=== PATIENT | male | born 1980 | race Hispanic/Latino ===

== ENCOUNTER 2022-06-01 05:16 | Inpatient (IN) | payer OTHER, SELFPAY ==
[2022-06-01] MEDS ORDERED: Boostrix 0.5 ML (Tdap) VIAL (>/=7 yrs of age) ONE (05:21)
[2022-06-01] MEDS ORDERED: CEFAZOLIN 2 GM VIAL ONE ×3 (05:21→18:07)
[2022-06-01] MEDS ORDERED: Tranexamic Acid 1,000 MG/10 ML VIAL ONE ×2 (05:31→05:51)
[2022-06-01] MEDS ORDERED: Calcium Chloride 1 GM/10 ML Abboject SYRINGE ONE (05:43)
[2022-06-01] MEDS ORDERED: FENTANYL 50 MCG/ML 1 ML VIAL ONE ×5 (05:50→14:59)
[2022-06-01 05:55] LABS: Hemoglobin 12.8 g/dL (14.0-18.0); Mean Corpuscular HGB CONC 33.6 g/dL (32.0-36.0); Mean Corpuscular Hemoglobin 30.7 pg (27.0-31.0); Mean Corpuscular Volume 91.5 fl (78.0-98.0); Mean Platelet Volume 8.1 fL (7.4-10.4); Platelet Count 284 10x3/uL (130-400); RBC Distribution Width 11.6 % (11.5-14.5); Red Blood Cell (RBC) Count 4.16 mill/uL (4.70-6.10); White Blood Cell (WBC) Count 39.5 10x3/uL (4.8-10.8)
[2022-06-01] MEDS ORDERED: hydrALAZINE 20 MG/ML VIAL SLOW IVP PRN (05:58)
[2022-06-01] MEDS ORDERED: Morphine 4 MG/ML VIAL SLOW IVP PRN (05:58)
[2022-06-01] MEDS ORDERED: Ipratropium/Albuterol 3 ML NEB NEB PRN (05:58)
[2022-06-01] MEDS ORDERED: TETANUS, DIPHTHERIA TOX,ADULT (TDVAX) 0.5 ML VIAL IM ONE (05:58)
[2022-06-01] MEDS ORDERED: Ondansetron PF 4 MG/2 ML Vial IVP PRN (05:58)
[2022-06-01] MEDS ORDERED: Sodium Chloride 0.9% 1,000 ML IV SCH (06:00)
[2022-06-01] MEDS ORDERED: traMADol HCl 50 MG TAB PO PRN (06:02)
[2022-06-01 06:05] LABS: Acetaminophen Less than 10.0 mcg/mL (10.0-30.0); Alcohol Less than 10 mg/dL (Less than 10); CK (CPK) 1173 U/L (30-200); Salicylate Less than 8.0 mg/dL (15.0-30.0)
[2022-06-01 06:07] LABS: ALT (SGPT) 35 U/L (8-55); AST (SGOT) 45 U/L (5-34); Albumin 3.6 g/dL (3.5-5.0); Alkaline Phosphatase 80 U/L (40-110); Anion Gap 17 mmol/L (10-20); BUN (Urea Nitrogen) 22 mg/dL (8.9-20.6); Bilirubin, Total 0.7 mg/dL (0.2-1.2); Calc. Creatinine Clearance 0 mL/min (70-130); Calcium 8.6 mg/dL (7.8-10.44); Carbon Dioxide 17 mmol/L (22-29); Chloride 108 mmol/L (98-107); Estimated GFR 82; Globulin 2.5 g/dL (2.4-3.5); Glucose 195 mg/dL (70-105); Lipase 16 U/L (8-78); Potassium 3.5 mmol/L (3.5-5.1); Protein, Total 6.1 g/dL (6.0-8.3); Sodium 138 mmol/L (136-145)
[2022-06-01 06:13] LABS: INR-International Normal Ratio 1.4; PTT 29.9 sec (22.9-36.1); Prothrombin Time 17.8 sec (12.0-14.7)
[2022-06-01 06:14] LABS: Band 24 % (5-11); Lymphocytes 6 % (21-51); MDiff Complete? YES; Monocytes 8 % (0-10); Neutrophil 62 % (42-75); Platelet Morphology Comment Appears Adequate; RBC Morphology Normal
[2022-06-01] MEDS ORDERED: Ondansetron PF 4 MG/2 ML Vial ONE ×2 (06:32→18:10)
[2022-06-01] MEDS ORDERED: Lidocaine 1% MPF 2 ML VIAL ONE (07:43)
[2022-06-01] MEDS ORDERED: Lidocaine 1% w/Epinephrine 1:200K 30 ML VIAL FS SCH (08:00)
[2022-06-01 08:20] LABS: Bacteria/HPF None Seen HPF (None Seen); Bilirubin Negative (Negative); Blood, Urine 1+ (Negative); Clarity Clear (Clear); Glucose, Urine (Dipstick) Normal (Negative); Ketone, Urine Negative (Negative); Leukocyte Negative Leu/uL (Negative); Nitrite Negative (Negative); Protein, Urine (Dipstick) Negative (Neg-Trace); RBC/HPF 0-3 HPF (0-3); Specific Gravity, Urine 1.038 (1.002-1.036); Squamous Epithelial None Seen HPF (0-3); Urobilinogen Normal mg/dL (Less than 2); WBC/HPF 0-3 HPF (0-3)
[2022-06-01 08:28] LABS: Amphetamine Not Detected (NotDetected); Barbiturates Screen Not Detected (NotDetected); Benzodiazepine Screen Not Detected (NotDetected); Cocaine Metabolite Screen Not Detected (NotDetected); Methadone Not Detected (NotDetected); Methamphetamine Not Detected (NotDetected); Opiate Screen Not Detected (NotDetected); Oxycodone Screen Not Detected (NotDetected); Phencyclidine (PCP) Not Detected (NotDetected); THC/Cannabinoid Screen Not Detected (NotDetected); Tricyclic Screen Not Detected (NotDetected)
[2022-06-01] MEDS ORDERED: CEFAZOLIN 2 GM in Sodium Chloride 0.9% 100 ML IVPB SCH (08:30)
[2022-06-01] MEDS ORDERED: Gabapentin 100 MG CAP PO SCH (09:00)
[2022-06-01] MEDS: Sodium Chloride 0.9% 1,000 ML IV SCH ×3 (09:08→23:45)
[2022-06-01] MEDS ORDERED: Ketorolac Tromethamine 30 MG/ML VIAL IVP SCH (09:15)
[2022-06-01] MEDS: Acetaminophen 500 MG TAB PO SCH ×3 (09:25→23:30)
[2022-06-01] MEDS: Polyethylene Glycol 3350 17 GM Packet PO SCH (09:27)
[2022-06-01] MEDS: Gabapentin 300 MG CAP PO SCH ×3 (09:27→23:30)
[2022-06-01] MEDS: Senokot S 8.6-50 MG TAB PO SCH ×2 (09:27→23:30)
[2022-06-01] MEDS: Famotidine/PF 20 mg/2ml Vial SLOW IVP SCH ×2 (09:31→23:30)
[2022-06-01 09:33] LABS: Lactic Acid 5.9 mmol/L (0.5-2.2)
[2022-06-01] MEDS ORDERED: Iopamidol-370 76% 500 ML 1 ML ONE (11:04)
[2022-06-01] MEDS: Morphine 4 MG/ML VIAL SLOW IVP PRN (11:35)
[2022-06-01] MEDS: traMADol HCl 50 MG TAB PO SCH ×3 (11:41→23:59)
[2022-06-01] MEDS ORDERED: cefTRIAXone\\ROCEPHIN 2 GM in Sodium Chloride 0.9% 100 ML IVPB SCH (12:00)
[2022-06-01] MEDS ORDERED: traMADol HCl 50 MG TAB PO SCH (12:00)
[2022-06-01 14:03] LABS: SARS-CoV-2 NAA Rapid Test Not Detected (NotDetected)
[2022-06-01] MEDS ORDERED: fentaNYL PF 100 MCG/2 ML SYRINGE ONE ×2 (14:59→17:57)
[2022-06-01] MEDS ORDERED: HYDROmorphone 0.5 MG/0.5 ML SYRINGE ONE (14:59)
[2022-06-01] MEDS ORDERED: MINERAL OIL/WHITE PETROLATUM 3.5 GM TUBE ONE (15:00)
[2022-06-01] MEDS ORDERED: Sodium Chloride 0.9% 0 ML ONE (15:15)
[2022-06-01] MEDS ORDERED: Fluorescein Opthalmic Strip ONE (15:16)
[2022-06-01] MEDS ORDERED: Proparacaine 0.5% Opth 15 ML BOT ONE (15:24)
[2022-06-01] MEDS ORDERED: Midazolam HCl 2 mg/2 ml Vial ONE (17:57)
[2022-06-01] MEDS ORDERED: Sodium Chloride 0.9% 100 ML ONE (18:07)
[2022-06-01] MEDS ORDERED: Succinylcholine 200 MG/10 ml SYRINGE FS ONE ×2 (18:10→22:06)
[2022-06-01] MEDS ORDERED: Ketorolac Tromethamine 30 MG/ML VIAL ONE (18:10)
[2022-06-01] MEDS ORDERED: PROPOFOL 200 MG/20 ML VIAL ONE (18:10)
[2022-06-01] MEDS ORDERED: Rocuronium Bromide 10 MG/ML (10ML VIAL) ONE (18:10)
[2022-06-01] MEDS ORDERED: Dexamethasone 20 MG/5 ML VIAL ONE (18:10)
[2022-06-01] MEDS ORDERED: NEOSTIGMINE 3 MG/3 ML SYR 3 MG/3 ML SYRINGE ONE (18:10)
[2022-06-01] MEDS ORDERED: HYDROmorphone 2 MG/ML VIAL ONE (19:02)
[2022-06-01] MEDS ORDERED: SUGAMMADEX SODIUM 200 MG/2 ML VIAL ONE (19:59)
[2022-06-01] MEDS ORDERED: Naloxone HCl 0.4 mg/ml Vial ONE (22:02)
[2022-06-01] MEDS ORDERED: PROPOFOL 20 ML ONE ×2 (22:06→22:44)
[2022-06-01] MEDS ORDERED: FENTANYL 500 MCG/10 ML VIAL 2,000 MCG in Sodium Chloride 0.9% 60 ML IV PRN (22:17)
[2022-06-01] MEDS ORDERED: Fentanyl CADD 100 ML IV SCH (22:30)
[2022-06-01] MEDS ORDERED: Dexmedetomidine In 0.9 % NaCl 100 ML IVPB SCH (22:30)
[2022-06-01 23:03] LABS: Actual Bicarbonate (HCO3a) 18.2 mEq/L (22-28); Base Excess (BEa) -7.5 mEq/L (-2.0 to +3.0); CO2 Tension 37.9 mmHg (35.0-45.0); Calcium, Ionized (arterial) 1.07 mmol/L (1.12-1.30); Carboxyhemoglobin (COHb) 0.4 gm% (0.0-3.0); Hemoglobin (Hb) 11.7 g/dL (14.0-18.0); O2 Tension (PaO2), arterial 107.4 mmHg (80.0-100.0); Potassium - ABG Lab 5.41 mmol/L (3.70-5.30)
[2022-06-01 23:06] LABS: ALV-art Gradient 201.725 mmHg (0-20); Puncture Site RRA
[2022-06-02] MEDS: Morphine 4 MG/ML VIAL SLOW IVP PRN (00:40)
[2022-06-02] MEDS: Acetaminophen 500 MG TAB PO SCH ×4 (02:09→20:59)
[2022-06-02] MEDS: Ipratropium/Albuterol 3 ML NEB NEB SCH ×5 (03:04→18:28)
[2022-06-02 04:15] LABS: Anion Gap 14 mmol/L (10-20); BUN (Urea Nitrogen) 19 mg/dL (8.9-20.6); Calc. Creatinine Clearance 175 mL/min (70-130); Calcium 7.8 mg/dL (7.8-10.44); Carbon Dioxide 20 mmol/L (22-29); Chloride 109 mmol/L (98-107); Estimated GFR 104; Glucose 155 mg/dL (70-105); Magnesium 1.4 mg/dL (1.6-2.6); Potassium 4.6 mmol/L (3.5-5.1); Sodium 138 mmol/L (136-145)
[2022-06-02 04:42] LABS: Band 29 % (5-11); Hemoglobin 10.4 g/dL (14.0-18.0); Lymphocytes 3 % (21-51); MDiff Complete? YES; Mean Corpuscular HGB CONC 35.7 g/dL (32.0-36.0); Mean Corpuscular Hemoglobin 32.1 pg (27.0-31.0); Mean Corpuscular Volume 90.1 fl (78.0-98.0); Mean Platelet Volume 8.2 fL (7.4-10.4); Monocytes 5 % (0-10); Neutrophil 63 % (42-75); Platelet Count 120 10x3/uL (130-400); RBC Distribution Width 12.5 % (11.5-14.5); Red Blood Cell (RBC) Count 3.23 mill/uL (4.70-6.10); White Blood Cell (WBC) Count 14.6 10x3/uL (4.8-10.8)
[2022-06-02] MEDS: traMADol HCl 50 MG TAB PO SCH ×3 (05:48→17:31)
[2022-06-02] MEDS ORDERED: Magnesium Sulfate In Water 4 GM in Premix Bag 1 BAG IVPB SCH ×2 (06:30→07:00)
[2022-06-02] MEDS ORDERED: Sodium Phosphate 30 MMOL in Sodium Chloride 0.9% 250 ML 250 ML IVPB SCH ×2 (06:45→20:30)
[2022-06-02] MEDS ORDERED: Calcium Chloride 13.6 MEQ in Sodium Chloride 0.9% 100 ML IVPB SCH (07:00)
[2022-06-02] MEDS ORDERED: Sodium Chloride 0.9% 1,000 ML IV SCH (07:00)
[2022-06-02] MEDS ORDERED: Calcium Chloride 1 GM/10 ML Abboject SYRINGE IVP SCH (07:00)
[2022-06-02] MEDS: Sodium Chloride 0.9% 1,000 ML IV SCH ×3 (07:00→18:40)
[2022-06-02 07:25] LABS: Actual Bicarbonate (HCO3a) 19.2 mEq/L (22-28); Base Excess (BEa) -4.1 mEq/L (-2.0 to +3.0); CO2 Tension 28.9 mmHg (35.0-45.0); Calcium, Ionized (arterial) 1.03 mmol/L (1.12-1.30); Carboxyhemoglobin (COHb) 0.4 gm% (0.0-3.0); Hemoglobin (Hb) 9.6 g/dL (14.0-18.0); O2 Tension (PaO2), arterial 88.1 mmHg (80.0-100.0); pH, Arterial 7.44 (7.35-7.45)
[2022-06-02 07:30] LABS: ALV-art Gradient 89.675 mmHg (0-20); Puncture Site RRA
[2022-06-02 08:48] LABS: Lactic Acid 3.7 mmol/L (0.5-2.2)
[2022-06-02] MEDS: Gabapentin 300 MG CAP PO SCH ×3 (09:27→21:20)
[2022-06-02] MEDS: Senokot S 8.6-50 MG TAB PO SCH ×2 (09:28→21:21)
[2022-06-02] MEDS: Polyethylene Glycol 3350 17 GM Packet PO SCH (09:28)
[2022-06-02] MEDS: Famotidine/PF 20 mg/2ml Vial SLOW IVP SCH ×2 (10:13→21:20)
[2022-06-02 11:26] VITALS: BMI 43.0
[2022-06-02] MEDS ORDERED: Hydrocortisone Sod Succ/PF 100 mg/2 ml Vial IVP SCH (12:00)
[2022-06-02] MEDS: cefTRIAXone\\ROCEPHIN 2 GM in Sodium Chloride 0.9% 100 ML IVPB SCH (12:02)
[2022-06-02] MEDS: Hydrocortisone Sod Succ/PF 100 mg/2 ml Vial IVP SCH ×2 (13:53→21:00)
[2022-06-02] MEDS ORDERED: Bacitracin 1 PK TOP SCH ×2 (17:15→21:00)
[2022-06-02 20:01] LABS: #Lymphocytes 1.1 thou/uL (1.20-3.40); #Monocytes 1.6 thou/uL (0.11-0.59); %Basophils 0.1 % (0.0-1.0); %Eosinophils 0.1 % (0.0-10.0); %Lymphocytes 6.3 % (21.0-51.0); %Monocytes 8.8 % (0.0-10.0); %Neutrophils 84.7 % (42.0-75.0); Hemoglobin 8.1 g/dL (14.0-18.0); Mean Corpuscular HGB CONC 33.8 g/dL (32.0-36.0); Mean Corpuscular Hemoglobin 31.2 pg (27.0-31.0); Mean Corpuscular Volume 92.1 fl (78.0-98.0); Mean Platelet Volume 8.3 fL (7.4-10.4); Platelet Count 126 10x3/uL (130-400); RBC Distribution Width 12.5 % (11.5-14.5); Red Blood Cell (RBC) Count 2.61 mill/uL (4.70-6.10); White Blood Cell (WBC) Count 17.7 10x3/uL (4.8-10.8)
[2022-06-02 20:08] LABS: Anion Gap 13 mmol/L (10-20); BUN (Urea Nitrogen) 14 mg/dL (8.9-20.6); Calc. Creatinine Clearance 196 mL/min (70-130); Calcium 7.7 mg/dL (7.8-10.44); Carbon Dioxide 21 mmol/L (22-29); Chloride 107 mmol/L (98-107); Estimated GFR 110; Glucose 178 mg/dL (70-105); Magnesium 1.9 mg/dL (1.6-2.6); Potassium 4.1 mmol/L (3.5-5.1); Sodium 137 mmol/L (136-145)
[2022-06-02] MEDS ORDERED: Magnesium 2 GM/50 ML(in water) 2 GM in Premix Bag 1 BAG IVPB SCH (20:30)
[2022-06-03] MEDS: traMADol HCl 50 MG TAB PO SCH ×5 (00:13→23:58)
[2022-06-03] MEDS: Acetaminophen 500 MG TAB PO SCH ×4 (02:13→21:09)
[2022-06-03] MEDS: Hydrocortisone Sod Succ/PF 100 mg/2 ml Vial IVP SCH (03:54)
[2022-06-03 04:05] LABS: #Lymphocytes 1.3 thou/uL (1.20-3.40); #Monocytes 1.8 thou/uL (0.11-0.59); #Neutrophils 11.7 thou/uL (1.40-6.50); %Basophils 0.1 % (0.0-1.0); %Eosinophils 0.1 % (0.0-10.0); %Lymphocytes 8.6 % (21.0-51.0); %Monocytes 12.2 % (0.0-10.0); Hemoglobin 8.1 g/dL (14.0-18.0); Mean Corpuscular HGB CONC 34.8 g/dL (32.0-36.0); Mean Corpuscular Hemoglobin 31.6 pg (27.0-31.0); Mean Corpuscular Volume 90.7 fl (78.0-98.0); Mean Platelet Volume 7.8 fL (7.4-10.4); Platelet Count 112 10x3/uL (130-400); RBC Distribution Width 12.1 % (11.5-14.5); Red Blood Cell (RBC) Count 2.57 mill/uL (4.70-6.10); White Blood Cell (WBC) Count 14.8 10x3/uL (4.8-10.8)
[2022-06-03 04:13] LABS: Lactic Acid 1.3 mmol/L (0.5-2.2)
[2022-06-03 04:41] LABS: Anion Gap 10 mmol/L (10-20); BUN (Urea Nitrogen) 11 mg/dL (8.9-20.6); Calc. Creatinine Clearance 236 mL/min (70-130); Calcium 7.6 mg/dL (7.8-10.44); Carbon Dioxide 25 mmol/L (22-29); Chloride 107 mmol/L (98-107); Estimated GFR 116; Glucose 133 mg/dL (70-105); Magnesium 2.4 mg/dL (1.6-2.6); Phosphorus 2.6 mg/dL (2.3-4.7); Potassium 4.1 mmol/L (3.5-5.1); Sodium 138 mmol/L (136-145)
[2022-06-03] MEDS: Bacitracin 1 PK TOP SCH (08:57)
[2022-06-03] MEDS: Famotidine/PF 20 mg/2ml Vial SLOW IVP SCH ×2 (08:57→21:07)
[2022-06-03] MEDS: Senokot S 8.6-50 MG TAB PO SCH ×2 (08:58→21:08)
[2022-06-03] MEDS: Polyethylene Glycol 3350 17 GM Packet PO SCH (08:59)
[2022-06-03] MEDS: Gabapentin 300 MG CAP PO SCH ×3 (08:59→21:07)
[2022-06-03] MEDS: cefTRIAXone\\ROCEPHIN 2 GM in Sodium Chloride 0.9% 100 ML IVPB SCH (12:47)
[2022-06-03] MEDS: Ferrous Sulfate 325 MG TAB PO SCH (17:40)
[2022-06-03] MEDS: Ascorbic Acid 500 mg Chewable Tablet PO SCH (21:08)
[2022-06-04] MEDS: Acetaminophen 500 MG TAB PO SCH ×4 (02:35→21:18)
[2022-06-04] MEDS: traMADol HCl 50 MG TAB PO SCH ×3 (05:28→17:39)
[2022-06-04 06:09] LABS: #Lymphocytes 1.5 thou/uL (1.20-3.40); #Monocytes 1.6 thou/uL (0.11-0.59); #Neutrophils 10.9 thou/uL (1.40-6.50); %Basophils 0.1 % (0.0-1.0); %Eosinophils 0.2 % (0.0-10.0); %Lymphocytes 10.7 % (21.0-51.0); %Monocytes 11.3 % (0.0-10.0); %Neutrophils 77.6 % (42.0-75.0); Hemoglobin 8.3 g/dL (14.0-18.0); Mean Corpuscular Hemoglobin 30.6 pg (27.0-31.0); Mean Corpuscular Volume 92.8 fl (78.0-98.0); Mean Platelet Volume 7.8 fL (7.4-10.4); Platelet Count 145 10x3/uL (130-400); RBC Distribution Width 12.4 % (11.5-14.5); Red Blood Cell (RBC) Count 2.71 mill/uL (4.70-6.10); White Blood Cell (WBC) Count 14.1 10x3/uL (4.8-10.8)
[2022-06-04 06:36] LABS: Anion Gap 10 mmol/L (10-20); BUN (Urea Nitrogen) 9 mg/dL (8.9-20.6); Calc. Creatinine Clearance 239 mL/min (70-130); Carbon Dioxide 25 mmol/L (22-29); Chloride 104 mmol/L (98-107); Estimated GFR 116; Glucose 123 mg/dL (70-105); Phosphorus 1.6 mg/dL (2.3-4.7); Potassium 3.9 mmol/L (3.5-5.1); Sodium 135 mmol/L (136-145)
[2022-06-04] MEDS: Polyethylene Glycol 3350 17 GM Packet PO SCH (08:45)
[2022-06-04] MEDS: Gabapentin 300 MG CAP PO SCH ×3 (08:47→21:10)
[2022-06-04] MEDS: Senokot S 8.6-50 MG TAB PO SCH ×2 (08:48→21:09)
[2022-06-04] MEDS: Ferrous Sulfate 325 MG TAB PO SCH ×2 (08:49→17:39)
[2022-06-04] MEDS: Bacitracin 1 PK TOP SCH (08:50)
[2022-06-04] MEDS: Ascorbic Acid 500 mg Chewable Tablet PO SCH ×2 (08:50→21:09)
[2022-06-04] MEDS: Saccharomyces boulardii 250 MG CAP PO SCH (08:50)
[2022-06-04] MEDS: Famotidine/PF 20 mg/2ml Vial SLOW IVP SCH ×2 (08:51→21:09)
[2022-06-04] MEDS ORDERED: Potassium Phosphate 30 MMOL in Sodium Chloride 0.9% 250 ML 250 ML IVPB SCH (10:00)
[2022-06-04] MEDS: cefTRIAXone\\ROCEPHIN 2 GM in Sodium Chloride 0.9% 100 ML IVPB SCH (12:01)
[2022-06-04] MEDS ORDERED: Furosemide 20 MG/2 ML VIAL SLOW IVP SCH (14:00)
[2022-06-04] MEDS: Cyclobenzaprine 10 MG TAB PO PRN (21:15)
[2022-06-05] MEDS: traMADol HCl 50 MG TAB PO SCH ×5 (00:26→23:43)
[2022-06-05] MEDS: Acetaminophen 500 MG TAB PO SCH ×5 (02:25→21:13)
[2022-06-05] MEDS: Ascorbic Acid 500 mg Chewable Tablet PO SCH ×2 (09:01→21:13)
[2022-06-05] MEDS: Ferrous Sulfate 325 MG TAB PO SCH ×2 (09:01→16:26)
[2022-06-05] MEDS: Bacitracin 1 PK TOP SCH (09:01)
[2022-06-05] MEDS: Gabapentin 300 MG CAP PO SCH ×3 (09:02→21:12)
[2022-06-05] MEDS: Famotidine/PF 20 mg/2ml Vial SLOW IVP SCH (09:02)
[2022-06-05] MEDS: Saccharomyces boulardii 250 MG CAP PO SCH (09:02)
[2022-06-05] MEDS: Polyethylene Glycol 3350 17 GM Packet PO SCH (09:02)
[2022-06-05] MEDS: Senokot S 8.6-50 MG TAB PO SCH ×2 (09:02→21:13)
[2022-06-05] MEDS ORDERED: Artificial Tear Sol 15 ML BOT EA EYE PRN (10:25)
[2022-06-05] MEDS: cefTRIAXone\\ROCEPHIN 2 GM in Sodium Chloride 0.9% 100 ML IVPB SCH (11:12)
[2022-06-05] MEDS: Dexamethasone 4 mg/ml Vial SLOW IVP SCH ×3 (11:12→21:11)
[2022-06-06] MEDS: Acetaminophen 500 MG TAB PO SCH ×4 (02:02→20:41)
[2022-06-06] MEDS: traMADol HCl 50 MG TAB PO SCH ×4 (06:19→23:15)
[2022-06-06 07:05] LABS: Hemoglobin 8.9 g/dL (14.0-18.0); Mean Corpuscular HGB CONC 32.9 g/dL (32.0-36.0); Mean Corpuscular Hemoglobin 30.9 pg (27.0-31.0); Mean Corpuscular Volume 93.9 fl (78.0-98.0); Mean Platelet Volume 7.2 fL (7.4-10.4); Platelet Count 243 10x3/uL (130-400); RBC Distribution Width 12.2 % (11.5-14.5); Red Blood Cell (RBC) Count 2.87 mill/uL (4.70-6.10); White Blood Cell (WBC) Count 19.7 10x3/uL (4.8-10.8)
[2022-06-06 07:07] LABS: Anion Gap 14 mmol/L (10-20); BUN (Urea Nitrogen) 12 mg/dL (8.9-20.6); Calc. Creatinine Clearance 268 mL/min (70-130); Calcium 8.8 mg/dL (7.8-10.44); Carbon Dioxide 25 mmol/L (22-29); Chloride 104 mmol/L (98-107); Estimated GFR 121; Glucose 144 mg/dL (70-105); Magnesium 2.2 mg/dL (1.6-2.6); Phosphorus 2.7 mg/dL (2.3-4.7); Potassium 4.5 mmol/L (3.5-5.1); Sodium 138 mmol/L (136-145)
[2022-06-06] MEDS: Ferrous Sulfate 325 MG TAB PO SCH ×2 (10:02→18:04)
[2022-06-06] MEDS: Gabapentin 300 MG CAP PO SCH ×3 (10:04→20:41)
[2022-06-06] MEDS: Polyethylene Glycol 3350 17 GM Packet PO SCH (10:04)
[2022-06-06] MEDS: Saccharomyces boulardii 250 MG CAP PO SCH (10:06)
[2022-06-06] MEDS: Bacitracin 1 PK TOP SCH (10:06)
[2022-06-06] MEDS: Ascorbic Acid 500 mg Chewable Tablet PO SCH ×2 (10:06→20:41)
[2022-06-06] MEDS: Senokot S 8.6-50 MG TAB PO SCH ×2 (10:06→20:42)
[2022-06-06 11:37] LABS: Band 18 % (5-11); Lymphocytes 3 % (21-51); MDiff Complete? YES; Monocytes 9 % (0-10); Neutrophil 70 % (42-75); Platelet Morphology Comment Appears Adequate; Polychromasia SLIGHT = 2-3 cells (100X) (0-2/hpf)
[2022-06-06] MEDS: cefTRIAXone\\ROCEPHIN 2 GM in Sodium Chloride 0.9% 100 ML IVPB SCH (11:39)
[2022-06-07] MEDS: Acetaminophen 500 MG TAB PO SCH ×4 (02:01→22:26)
[2022-06-07] MEDS: traMADol HCl 50 MG TAB PO SCH ×3 (05:38→18:25)
[2022-06-07 08:48] LABS: Hemoglobin 8.7 g/dL (14.0-18.0); Mean Corpuscular HGB CONC 32.4 g/dL (32.0-36.0); Mean Corpuscular Volume 92.7 fl (78.0-98.0); Mean Platelet Volume 7.6 fL (7.4-10.4); Platelet Count 274 10x3/uL (130-400); RBC Distribution Width 12.7 % (11.5-14.5); Red Blood Cell (RBC) Count 2.89 mill/uL (4.70-6.10)
[2022-06-07] MEDS: Senokot S 8.6-50 MG TAB PO SCH ×2 (10:35→22:26)
[2022-06-07] MEDS: Ascorbic Acid 500 mg Chewable Tablet PO SCH (10:35)
[2022-06-07] MEDS: Bacitracin 1 PK TOP SCH (10:35)
[2022-06-07] MEDS: Gabapentin 300 MG CAP PO SCH ×3 (10:36→22:26)
[2022-06-07] MEDS: Polyethylene Glycol 3350 17 GM Packet PO SCH (10:36)
[2022-06-07] MEDS: Ferrous Sulfate 325 MG TAB PO SCH ×2 (10:36→18:33)
[2022-06-07 11:33] LABS: Band 6 % (5-11); Eosinophils 1 % (0-10); Lymphocytes 10 % (21-51); MDiff Complete? YES; Metamyelocyte 3 % (0-0); Monocytes 14 % (0-10); Myelocyte 4 % (0-0); Neutrophil 61 % (42-75); Platelet Morphology Comment Appears Adequate; Polychromasia SLIGHT = 2-3 cells (100X) (0-2/hpf); Reactive Lymphocytes 1 % (0-10)
[2022-06-07] MEDS ORDERED: Ipratropium/Albuterol 3 ML NEB NEB SCH (20:15)
[2022-06-07 20:36] LABS: Mean Corpuscular HGB CONC 32.3 g/dL (32.0-36.0); Mean Corpuscular Hemoglobin 30.1 pg (27.0-31.0); Mean Platelet Volume 6.9 fL (7.4-10.4); Platelet Count 336 10x3/uL (130-400); RBC Distribution Width 12.6 % (11.5-14.5); Red Blood Cell (RBC) Count 3.33 mill/uL (4.70-6.10); White Blood Cell (WBC) Count 7.5 10x3/uL (4.8-10.8)
[2022-06-07 20:58] LABS: Troponin I Less than 0.010 ng/mL (< 0.028)
[2022-06-07 21:01] LABS: Anion Gap 20 mmol/L (10-20); BUN (Urea Nitrogen) 15 mg/dL (8.9-20.6); Calc. Creatinine Clearance 188 mL/min (70-130); Carbon Dioxide 24 mmol/L (22-29); Chloride 98 mmol/L (98-107); Estimated GFR 105; Glucose 89 mg/dL (70-105); Magnesium 1.9 mg/dL (1.6-2.6); Phosphorus 4.3 mg/dL (2.3-4.7); Potassium 4.8 mmol/L (3.5-5.1); Sodium 137 mmol/L (136-145)
[2022-06-07 21:05] LABS: Band 16 % (5-11); Lymphocytes 22 % (21-51); MDiff Complete? YES; Metamyelocyte 10 % (0-0); Myelocyte 9 % (0-0); Neutrophil 43 % (42-75); Nucleated RBC 3 % (0); Platelet Morphology Comment Appears Adequate; RBC Morphology Normal
[2022-06-08] MEDS: Ipratropium/Albuterol 3 ML NEB NEB SCH ×5 (00:55→23:10)
[2022-06-08] MEDS: traMADol HCl 50 MG TAB PO SCH ×5 (01:20→23:42)
[2022-06-08] MEDS: Acetaminophen 500 MG TAB PO SCH ×4 (04:30→20:03)
[2022-06-08 06:52] LABS: Hemoglobin 9.4 g/dL (14.0-18.0); Mean Corpuscular HGB CONC 31.8 g/dL (32.0-36.0); Mean Corpuscular Hemoglobin 29.8 pg (27.0-31.0); Mean Corpuscular Volume 93.6 fl (78.0-98.0); Mean Platelet Volume 6.8 fL (7.4-10.4); Platelet Count 377 10x3/uL (130-400); RBC Distribution Width 12.8 % (11.5-14.5); Red Blood Cell (RBC) Count 3.15 mill/uL (4.70-6.10)
[2022-06-08 07:10] LABS: Troponin I Less than 0.010 ng/mL (< 0.028)
[2022-06-08] MEDS ORDERED: Magnesium 2 GM/50 ML(in water) 2 GM in Premix Bag 1 BAG IVPB SCH (09:00)
[2022-06-08 09:25] LABS: Band 24 % (5-11); Eosinophils 1 % (0-10); Lymphocytes 12 % (21-51); MDiff Complete? YES; Metamyelocyte 7 % (0-0); Monocytes 9 % (0-10); Myelocyte 5 % (0-0); Neutrophil 41 % (42-75); Platelet Morphology Comment Appears Adequate; Polychromasia SLIGHT = 2-3 cells (100X) (0-2/hpf); Reactive Lymphocytes 1 % (0-10)
[2022-06-08] MEDS: Ferrous Sulfate 325 MG TAB PO SCH (09:40)
[2022-06-08] MEDS: Ascorbic Acid 500 mg Chewable Tablet PO SCH (09:41)
[2022-06-08] MEDS: Bacitracin 1 PK TOP SCH (09:41)
[2022-06-08] MEDS: Gabapentin 300 MG CAP PO SCH ×2 (09:41→20:06)
[2022-06-08] MEDS: Senokot S 8.6-50 MG TAB PO SCH ×2 (09:42→20:06)
[2022-06-08] MEDS: Polyethylene Glycol 3350 17 GM Packet PO SCH (09:43)
[2022-06-09] MEDS: Acetaminophen 500 MG TAB PO SCH ×4 (04:07→17:47)
[2022-06-09] MEDS: traMADol HCl 50 MG TAB PO SCH ×3 (05:19→17:40)
[2022-06-09] MEDS: Ipratropium/Albuterol 3 ML NEB NEB SCH ×4 (06:51→23:25)
[2022-06-09 08:26] LABS: Band 6 % (5-11); Eosinophils 2 % (0-10); Hemoglobin 9.4 g/dL (14.0-18.0); Lymphocytes 14 % (21-51); MDiff Complete? YES; Mean Corpuscular HGB CONC 32.2 g/dL (32.0-36.0); Mean Corpuscular Hemoglobin 30.4 pg (27.0-31.0); Mean Corpuscular Volume 94.5 fl (78.0-98.0); Mean Platelet Volume 6.7 fL (7.4-10.4); Metamyelocyte 3 % (0-0); Monocytes 10 % (0-10); Myelocyte 3 % (0-0); Neutrophil 61 % (42-75); Platelet Count 396 10x3/uL (130-400); Platelet Morphology Comment Appears Adequate; Polychromasia SLIGHT = 2-3 cells (100X) (0-2/hpf); RBC Distribution Width 12.9 % (11.5-14.5); Reactive Lymphocytes 1 % (0-10); Red Blood Cell (RBC) Count 3.08 mill/uL (4.70-6.10); Vacuoles SLIGHT; White Blood Cell (WBC) Count 19.6 10x3/uL (4.8-10.8)
[2022-06-09] MEDS: Gabapentin 300 MG CAP PO SCH ×2 (09:16→20:00)
[2022-06-09] MEDS: Bacitracin 1 PK TOP SCH (09:16)
[2022-06-09] MEDS: Ascorbic Acid 500 mg Chewable Tablet PO SCH (09:16)
[2022-06-09] MEDS: Senokot S 8.6-50 MG TAB PO SCH ×2 (09:16→20:01)
[2022-06-09] MEDS: Polyethylene Glycol 3350 17 GM Packet PO SCH (09:17)
[2022-06-09] MEDS: Cyclobenzaprine 10 MG TAB PO PRN (13:01)
[2022-06-09] MEDS: Ferrous Sulfate 325 MG TAB PO SCH (16:02)
[2022-06-09] MEDS ORDERED: Piperacillin/Tazobactam 3.375 GM in Sodium Chloride 0.9% 100 ML IVPB SCH (20:45)
[2022-06-09] MEDS: Ibuprofen 200 MG TAB PO SCH (21:24)
[2022-06-09 22:35] LABS: Bacteria/HPF None Seen HPF (None Seen); Bilirubin Negative (Negative); Blood, Urine Negative (Negative); CAUTI Indications for Culture Fever or rigors; Clarity Clear (Clear); Glucose, Urine (Dipstick) Normal (Negative); Ketone, Urine Negative (Negative); Leukocyte Negative Leu/uL (Negative); Nitrite Negative (Negative); Protein, Urine (Dipstick) 10 mg/dL (Neg-Trace); RBC/HPF 0-3 HPF (0-3); Specific Gravity, Urine 1.019 (1.002-1.036); Squamous Epithelial None Seen HPF (0-3); Urobilinogen Normal mg/dL (Less than 2); WBC/HPF 0-3 HPF (0-3); pH, Urine 5.5 (5.0-9.0)
[2022-06-09 22:43] LABS: Urine Culture Reflex No No
[2022-06-10] MEDS: traMADol HCl 50 MG TAB PO SCH ×4 (00:43→18:37)
[2022-06-10] MEDS: Acetaminophen 500 MG TAB PO SCH ×4 (00:44→21:19)
[2022-06-10] MEDS: Piperacillin/Tazobactam 3.375 GM in Sodium Chloride 0.9% 100 ML IVPB SCH ×3 (01:43→16:28)
[2022-06-10] MEDS: Vancomycin 1 GM in Premix Bag 1 BAG IVPB SCH ×3 (06:07→21:21)
[2022-06-10] MEDS: Ibuprofen 200 MG TAB PO SCH ×3 (06:13→21:20)
[2022-06-10] MEDS: Ipratropium/Albuterol 3 ML NEB NEB SCH ×4 (06:42→23:32)
[2022-06-10] MEDS: Gabapentin 300 MG CAP PO SCH ×2 (08:36→21:19)
[2022-06-10] MEDS: Ascorbic Acid 500 mg Chewable Tablet PO SCH (08:36)
[2022-06-10] MEDS: Ferrous Sulfate 325 MG TAB PO SCH (08:37)
[2022-06-10] MEDS: Bacitracin 1 PK TOP SCH (08:37)
[2022-06-10] MEDS: Senokot S 8.6-50 MG TAB PO SCH ×2 (08:49→21:19)
[2022-06-10] MEDS: Polyethylene Glycol 3350 17 GM Packet PO SCH (08:49)
[2022-06-10 09:34] LABS: ALT (SGPT) 84 U/L (8-55); AST (SGOT) 36 U/L (5-34); Albumin 3.3 g/dL (3.5-5.0); Alkaline Phosphatase 144 U/L (40-110); Anion Gap 15 mmol/L (10-20); BUN (Urea Nitrogen) 18 mg/dL (8.9-20.6); Calc. Creatinine Clearance 178 mL/min (70-130); Calcium 8.8 mg/dL (7.8-10.44); Carbon Dioxide 22 mmol/L (22-29); Chloride 102 mmol/L (98-107); Estimated GFR 99; Globulin 3.9 g/dL (2.4-3.5); Glucose 109 mg/dL (70-105); Magnesium 2.4 mg/dL (1.6-2.6); Phosphorus 3.9 mg/dL (2.3-4.7); Potassium 4.5 mmol/L (3.5-5.1); Protein, Total 7.2 g/dL (6.0-8.3); Sodium 134 mmol/L (136-145)
[2022-06-10 10:17] LABS: Band 3 % (5-11); Eosinophils 1 % (0-10); Hemoglobin 8.9 g/dL (14.0-18.0); Lymphocytes 2 % (21-51); MDiff Complete? YES; Mean Corpuscular HGB CONC 32.2 g/dL (32.0-36.0); Mean Corpuscular Hemoglobin 30.2 pg (27.0-31.0); Mean Corpuscular Volume 93.7 fl (78.0-98.0); Mean Platelet Volume 6.5 fL (7.4-10.4); Monocytes 3 % (0-10); Myelocyte 1 % (0-0); Neutrophil 90 % (42-75); Platelet Count 378 10x3/uL (130-400); Platelet Morphology Comment Appears Adequate; RBC Distribution Width 12.6 % (11.5-14.5); RBC Morphology Normal; Red Blood Cell (RBC) Count 2.94 mill/uL (4.70-6.10); White Blood Cell (WBC) Count 26.2 10x3/uL (4.8-10.8)
[2022-06-10 21:52] LABS: Vancomycin, Trough 21.6 ug/mL
[2022-06-11] MEDS: traMADol HCl 50 MG TAB PO SCH ×5 (00:34→23:23)
[2022-06-11] MEDS: Piperacillin/Tazobactam 3.375 GM in Sodium Chloride 0.9% 100 ML IVPB SCH ×3 (00:34→17:07)
[2022-06-11] MEDS: Acetaminophen 500 MG TAB PO SCH ×4 (02:17→21:49)
[2022-06-11] MEDS: Ibuprofen 200 MG TAB PO SCH ×3 (05:26→21:49)
[2022-06-11 06:10] LABS: #Eosinphils 0.5 thou/uL (0.0-0.7); #Monocytes 1.4 thou/uL (0.11-0.59); %Basophils 0.3 % (0.0-1.0); %Lymphocytes 12.8 % (21.0-51.0); %Monocytes 8.9 % (0.0-10.0); Hemoglobin 8.2 g/dL (14.0-18.0); Mean Corpuscular HGB CONC 32.5 g/dL (32.0-36.0); Mean Corpuscular Hemoglobin 30.8 pg (27.0-31.0); Mean Corpuscular Volume 94.5 fl (78.0-98.0); Mean Platelet Volume 6.4 fL (7.4-10.4); Platelet Count 368 10x3/uL (130-400); RBC Distribution Width 12.6 % (11.5-14.5); Red Blood Cell (RBC) Count 2.67 mill/uL (4.70-6.10)
[2022-06-11] MEDS: Ipratropium/Albuterol 3 ML NEB NEB SCH (07:12)
[2022-06-11] MEDS: Polyethylene Glycol 3350 17 GM Packet PO SCH (07:57)
[2022-06-11] MEDS: Senokot S 8.6-50 MG TAB PO SCH ×2 (07:57→21:49)
[2022-06-11] MEDS: Gabapentin 300 MG CAP PO SCH ×2 (07:58→21:50)
[2022-06-11] MEDS: Bacitracin 1 PK TOP SCH (07:58)
[2022-06-11] MEDS: Ascorbic Acid 500 mg Chewable Tablet PO SCH (07:59)
[2022-06-11] MEDS: Vancomycin 1 GM in Premix Bag 1 BAG IVPB SCH ×2 (07:59→21:51)
[2022-06-11] MEDS: Ferrous Sulfate 325 MG TAB PO SCH (07:59)
[2022-06-11] MEDS ORDERED: Ipratropium/Albuterol 3 ML NEB NEB PRN (09:22)
[2022-06-12] MEDS: Piperacillin/Tazobactam 3.375 GM in Sodium Chloride 0.9% 100 ML IVPB SCH ×4 (01:11→23:52)
[2022-06-12] MEDS: Acetaminophen 500 MG TAB PO SCH ×4 (02:28→21:17)
[2022-06-12] MEDS: Ibuprofen 200 MG TAB PO SCH ×3 (05:38→21:16)
[2022-06-12] MEDS: traMADol HCl 50 MG TAB PO SCH ×4 (05:38→23:51)
[2022-06-12 06:21] LABS: #Eosinphils 0.2 thou/uL (0.0-0.7); #Lymphocytes 1.7 thou/uL (1.20-3.40); #Monocytes 1.2 thou/uL (0.11-0.59); #Neutrophils 12.2 thou/uL (1.40-6.50); %Lymphocytes 11.2 % (21.0-51.0); %Neutrophils 79.7 % (42.0-75.0); Mean Corpuscular HGB CONC 31.5 g/dL (32.0-36.0); Mean Corpuscular Hemoglobin 29.9 pg (27.0-31.0); Mean Corpuscular Volume 94.7 fl (78.0-98.0); Mean Platelet Volume 6.4 fL (7.4-10.4); Platelet Count 399 10x3/uL (130-400); RBC Distribution Width 12.5 % (11.5-14.5); Red Blood Cell (RBC) Count 2.67 mill/uL (4.70-6.10); White Blood Cell (WBC) Count 15.3 10x3/uL (4.8-10.8)
[2022-06-12] MEDS: Vancomycin 1 GM in Premix Bag 1 BAG IVPB SCH (08:01)
[2022-06-12] MEDS: Ferrous Sulfate 325 MG TAB PO SCH (08:02)
[2022-06-12] MEDS: Ascorbic Acid 500 mg Chewable Tablet PO SCH (08:02)
[2022-06-12] MEDS: Senokot S 8.6-50 MG TAB PO SCH ×2 (08:03→21:16)
[2022-06-12] MEDS: Gabapentin 300 MG CAP PO SCH ×2 (08:03→21:16)
[2022-06-12] MEDS: Bacitracin 1 PK TOP SCH (08:03)
[2022-06-12] MEDS: Polyethylene Glycol 3350 17 GM Packet PO SCH (08:03)
[2022-06-12] MEDS: Saccharomyces boulardii 250 MG CAP PO SCH (08:04)
[2022-06-12 08:53] LABS: Vancomycin, Trough 9.1 ug/mL
[2022-06-12] MEDS ORDERED: Vancomycin HCl 500 MG in Sodium Chloride 0.9% 100 ML IVPB SCH (09:30)
[2022-06-12] MEDS: Vancomycin 1.5 GRAM/300 ML BAG 1.5 GM in Premix Bag 1 BAG IVPB SCH (21:17)
[2022-06-12] MEDS ORDERED: Sodium Chloride 0.9% 1,000 ML IV SCH (23:55)
[2022-06-13] MEDS: Acetaminophen 500 MG TAB PO SCH ×5 (02:23→22:35)
[2022-06-13] MEDS: Ibuprofen 200 MG TAB PO SCH ×3 (05:10→20:20)
[2022-06-13] MEDS: traMADol HCl 50 MG TAB PO SCH ×4 (05:11→22:35)
[2022-06-13] MEDS: Piperacillin/Tazobactam 3.375 GM in Sodium Chloride 0.9% 100 ML IVPB SCH ×2 (08:15→16:01)
[2022-06-13] MEDS: Vancomycin 1.5 GRAM/300 ML BAG 1.5 GM in Premix Bag 1 BAG IVPB SCH ×3 (08:15→23:22)
[2022-06-13] MEDS: Gabapentin 300 MG CAP PO SCH ×2 (08:22→20:19)
[2022-06-13] MEDS: Ferrous Sulfate 325 MG TAB PO SCH (08:24)
[2022-06-13] MEDS: Bacitracin 1 PK TOP SCH (08:25)
[2022-06-13] MEDS: Saccharomyces boulardii 250 MG CAP PO SCH (08:25)
[2022-06-13] MEDS: Polyethylene Glycol 3350 17 GM Packet PO SCH (08:25)
[2022-06-13] MEDS: Ascorbic Acid 500 mg Chewable Tablet PO SCH (08:25)
[2022-06-13] MEDS: Senokot S 8.6-50 MG TAB PO SCH ×2 (08:26→20:20)
[2022-06-13] MEDS: Famotidine 20 MG TAB PO SCH ×2 (08:41→20:20)
[2022-06-13 09:21] LABS: #Eosinphils 0.3 thou/uL (0.0-0.7); #Lymphocytes 1.2 thou/uL (1.20-3.40); #Monocytes 1.2 thou/uL (0.11-0.59); #Neutrophils 10.7 thou/uL (1.40-6.50); %Basophils 0.1 % (0.0-1.0); %Eosinophils 2.4 % (0.0-10.0); %Lymphocytes 9.1 % (21.0-51.0); %Neutrophils 79.4 % (42.0-75.0); Hemoglobin 7.7 g/dL (14.0-18.0); Mean Corpuscular HGB CONC 32.1 g/dL (32.0-36.0); Mean Corpuscular Hemoglobin 30.2 pg (27.0-31.0); Mean Corpuscular Volume 94.1 fl (78.0-98.0); Mean Platelet Volume 6.1 fL (7.4-10.4); Platelet Count 445 10x3/uL (130-400); RBC Distribution Width 12.9 % (11.5-14.5); Red Blood Cell (RBC) Count 2.55 mill/uL (4.70-6.10); White Blood Cell (WBC) Count 13.5 10x3/uL (4.8-10.8)
[2022-06-13 09:33] LABS: Anion Gap 13 mmol/L (10-20); BUN (Urea Nitrogen) 11 mg/dL (8.9-20.6); Calc. Creatinine Clearance 205 mL/min (70-130); Calcium 8.8 mg/dL (7.8-10.44); Carbon Dioxide 23 mmol/L (22-29); Chloride 107 mmol/L (98-107); Estimated GFR 111; Glucose 96 mg/dL (70-105); Magnesium 2.1 mg/dL (1.6-2.6); Phosphorus 2.9 mg/dL (2.3-4.7); Potassium 4.1 mmol/L (3.5-5.1); Sodium 139 mmol/L (136-145)
[2022-06-13] MEDS ORDERED: Neomycin-Polymyxin 1 ML AMP ONE (13:10)
[2022-06-13] MEDS ORDERED: Fentanyl 250 MCG/5 ML VIAL ONE (13:17)
[2022-06-13] MEDS ORDERED: Ondansetron PF 4 MG/2 ML Vial ONE (13:47)
[2022-06-13] MEDS ORDERED: Ketorolac Tromethamine 30 MG/ML VIAL ONE (13:47)
[2022-06-13] MEDS ORDERED: PROPOFOL 200 MG/20 ML VIAL ONE (13:47)
[2022-06-13] MEDS ORDERED: Fentanyl 100 MCG/2 ML VIAL ONE (15:17)
[2022-06-13] MEDS ORDERED: Promethazine HCl 25 MG/ML VIAL IM PRN (15:19)
[2022-06-13] MEDS ORDERED: Ondansetron HCl/PF 4 MG/2 ML Vial IVP PRN (15:19)
[2022-06-13] MEDS ORDERED: HYDROmorphone 2 MG/ML VIAL SLOW IVP PRN (15:19)
[2022-06-13] MEDS ORDERED: Promethazine HCl 25 MG/ML VIAL IVPB PRN (15:19)
[2022-06-13] MEDS ORDERED: Morphine 4 MG/ML VIAL SLOW IVP SCH (17:30)
[2022-06-13] MEDS: Cyclobenzaprine 10 MG TAB PO PRN (20:19)
[2022-06-13 21:00] LABS: #Eosinphils 0.1 thou/uL (0.0-0.7); #Lymphocytes 1.4 thou/uL (1.20-3.40); #Monocytes 1.5 thou/uL (0.11-0.59); #Neutrophils 13.8 thou/uL (1.40-6.50); %Basophils 0.2 % (0.0-1.0); %Eosinophils 0.8 % (0.0-10.0); %Lymphocytes 8.3 % (21.0-51.0); %Monocytes 8.7 % (0.0-10.0); Hemoglobin 7.7 g/dL (14.0-18.0); Mean Corpuscular HGB CONC 31.8 g/dL (32.0-36.0); Mean Corpuscular Hemoglobin 30.6 pg (27.0-31.0); Mean Corpuscular Volume 96.2 fl (78.0-98.0); Mean Platelet Volume 6.3 fL (7.4-10.4); Platelet Count 445 10x3/uL (130-400); RBC Distribution Width 13.1 % (11.5-14.5); Red Blood Cell (RBC) Count 2.52 mill/uL (4.70-6.10); White Blood Cell (WBC) Count 16.9 10x3/uL (4.8-10.8)
[2022-06-13 21:38] LABS: Vancomycin, Trough 9.8 ug/mL
[2022-06-14] MEDS: Piperacillin/Tazobactam 3.375 GM in Sodium Chloride 0.9% 100 ML IVPB SCH ×3 (01:15→15:39)
[2022-06-14] MEDS: Morphine 4 MG/ML VIAL SLOW IVP PRN ×3 (01:16→15:37)
[2022-06-14] MEDS: Vancomycin 1.5 GRAM/300 ML BAG 1.5 GM in Premix Bag 1 BAG IVPB SCH ×3 (05:19→21:34)
[2022-06-14] MEDS: Acetaminophen 500 MG TAB PO SCH ×4 (05:20→23:50)
[2022-06-14] MEDS: Ibuprofen 200 MG TAB PO SCH (05:21)
[2022-06-14] MEDS: traMADol HCl 50 MG TAB PO SCH ×3 (05:21→18:28)
[2022-06-14 06:36] LABS: #Eosinphils 0.4 thou/uL (0.0-0.7); #Lymphocytes 1.4 thou/uL (1.20-3.40); #Monocytes 1.2 thou/uL (0.11-0.59); #Neutrophils 10.5 thou/uL (1.40-6.50); %Basophils 0.1 % (0.0-1.0); %Eosinophils 3.1 % (0.0-10.0); %Lymphocytes 10.5 % (21.0-51.0); %Monocytes 9.1 % (0.0-10.0); %Neutrophils 77.2 % (42.0-75.0); Hemoglobin 7.1 g/dL (14.0-18.0); Mean Corpuscular HGB CONC 31.2 g/dL (32.0-36.0); Mean Corpuscular Hemoglobin 29.7 pg (27.0-31.0); Mean Corpuscular Volume 95.4 fl (78.0-98.0); Mean Platelet Volume 6.2 fL (7.4-10.4); Platelet Count 429 10x3/uL (130-400); RBC Distribution Width 13.2 % (11.5-14.5); Red Blood Cell (RBC) Count 2.38 mill/uL (4.70-6.10); White Blood Cell (WBC) Count 13.6 10x3/uL (4.8-10.8)
[2022-06-14 07:05] LABS: Anion Gap 11 mmol/L (10-20); BUN (Urea Nitrogen) 13 mg/dL (8.9-20.6); Calc. Creatinine Clearance 182 mL/min (70-130); Calcium 8.6 mg/dL (7.8-10.44); Carbon Dioxide 24 mmol/L (22-29); Chloride 105 mmol/L (98-107); Estimated GFR 101; Glucose 114 mg/dL (70-105); Magnesium 2.1 mg/dL (1.6-2.6); Phosphorus 3.8 mg/dL (2.3-4.7); Sodium 136 mmol/L (136-145)
[2022-06-14] MEDS: Gabapentin 300 MG CAP PO SCH ×2 (08:35→21:35)
[2022-06-14] MEDS: Senokot S 8.6-50 MG TAB PO SCH ×2 (08:35→21:34)
[2022-06-14] MEDS: Ferrous Sulfate 325 MG TAB PO SCH (08:35)
[2022-06-14] MEDS: Famotidine 20 MG TAB PO SCH ×2 (08:35→21:35)
[2022-06-14] MEDS: Bacitracin 1 PK TOP SCH (08:35)
[2022-06-14] MEDS: Ascorbic Acid 500 mg Chewable Tablet PO SCH (08:35)
[2022-06-14] MEDS: Saccharomyces boulardii 250 MG CAP PO SCH (08:35)
[2022-06-14] MEDS: Polyethylene Glycol 3350 17 GM Packet PO SCH (08:37)
[2022-06-14] MEDS ORDERED: Lidocaine 4% Topical Sol 50 ML BOT TOP SCH ×2 (12:00)
[2022-06-14] MEDS ORDERED: Ketorolac Tromethamine 30 MG/ML VIAL ONE (12:36)
[2022-06-14] MEDS ORDERED: Ketorolac Tromethamine 30 MG/ML VIAL IVP SCH (12:45)
[2022-06-14] MEDS ORDERED: Morphine 4 MG/ML VIAL SLOW IVP PRN (13:08)
[2022-06-14] MEDS: Ketorolac Tromethamine 30 MG/ML VIAL IVP SCH (18:27)
[2022-06-14 21:31] LABS: Vancomycin, Trough 20.1 ug/mL
[2022-06-14] MEDS: Cyclobenzaprine 10 MG TAB PO PRN (21:35)
[2022-06-15] MEDS: Ketorolac Tromethamine 30 MG/ML VIAL IVP SCH ×4 (00:01→18:00)
[2022-06-15] MEDS: traMADol HCl 50 MG TAB PO SCH ×4 (00:01→18:02)
[2022-06-15] MEDS: Piperacillin/Tazobactam 3.375 GM in Sodium Chloride 0.9% 100 ML IVPB SCH ×3 (01:33→18:00)
[2022-06-15] MEDS: Acetaminophen 500 MG TAB PO SCH ×3 (05:43→18:01)
[2022-06-15] MEDS: Vancomycin 1.5 GRAM/300 ML BAG 1.5 GM in Premix Bag 1 BAG IVPB SCH ×3 (05:43→22:48)
[2022-06-15 05:59] LABS: #Eosinphils 0.3 thou/uL (0.0-0.7); #Lymphocytes 1.5 thou/uL (1.20-3.40); #Monocytes 1.1 thou/uL (0.11-0.59); #Neutrophils 8.6 thou/uL (1.40-6.50); %Basophils 0.1 % (0.0-1.0); %Eosinophils 2.9 % (0.0-10.0); %Monocytes 9.7 % (0.0-10.0); %Neutrophils 74.4 % (42.0-75.0); Hemoglobin 7.9 g/dL (14.0-18.0); Mean Corpuscular Hemoglobin 29.9 pg (27.0-31.0); Mean Corpuscular Volume 93.4 fl (78.0-98.0); Mean Platelet Volume 6.2 fL (7.4-10.4); Platelet Count 470 10x3/uL (130-400); RBC Distribution Width 13.2 % (11.5-14.5); Red Blood Cell (RBC) Count 2.63 mill/uL (4.70-6.10); White Blood Cell (WBC) Count 11.6 10x3/uL (4.8-10.8)
[2022-06-15 06:21] LABS: Anion Gap 13 mmol/L (10-20); BUN (Urea Nitrogen) 14 mg/dL (8.9-20.6); Calc. Creatinine Clearance 173 mL/min (70-130); Carbon Dioxide 24 mmol/L (22-29); Chloride 104 mmol/L (98-107); Estimated GFR 95; Glucose 87 mg/dL (70-105); Potassium 4.1 mmol/L (3.5-5.1); Sodium 137 mmol/L (136-145)
[2022-06-15] MEDS: Famotidine 20 MG TAB PO SCH ×2 (09:28→21:48)
[2022-06-15] MEDS: Ferrous Sulfate 325 MG TAB PO SCH (09:28)
[2022-06-15] MEDS: Gabapentin 300 MG CAP PO SCH ×2 (09:28→21:48)
[2022-06-15] MEDS: Senokot S 8.6-50 MG TAB PO SCH ×2 (09:28→21:48)
[2022-06-15] MEDS: Bacitracin 1 PK TOP SCH (09:28)
[2022-06-15] MEDS: Ascorbic Acid 500 mg Chewable Tablet PO SCH (09:28)
[2022-06-15] MEDS: Saccharomyces boulardii 250 MG CAP PO SCH (09:28)
[2022-06-15] MEDS: Polyethylene Glycol 3350 17 GM Packet PO SCH (09:29)
[2022-06-15] MEDS ORDERED: HYDROmorphone 1 MG/ML SYRINGE SLOW IVP PRN (10:41)
[2022-06-15] MEDS: HYDROmorphone 2 MG/ML VIAL SLOW IVP PRN (11:25)
[2022-06-15 11:43] LABS: ALT (SGPT) 39 U/L (8-55); AST (SGOT) 29 U/L (5-34); Albumin 3.4 g/dL (3.5-5.0); Alkaline Phosphatase 128 U/L (40-110); Bilirubin, Direct 0.3 mg/dL (0.1-0.3); Bilirubin, Total 0.8 mg/dL (0.2-1.2)
[2022-06-15] MEDS: Furosemide 20 MG/2 ML VIAL SLOW IVP SCH (12:12)
[2022-06-15] MEDS: Cyclobenzaprine 10 MG TAB PO PRN (21:48)
[2022-06-15 21:55] LABS: Vancomycin, Trough 25.4 ug/mL
[2022-06-16] MEDS: traMADol HCl 50 MG TAB PO SCH ×5 (00:53→23:56)
[2022-06-16] MEDS: Acetaminophen 500 MG TAB PO SCH ×5 (00:54→23:56)
[2022-06-16] MEDS: Piperacillin/Tazobactam 3.375 GM in Sodium Chloride 0.9% 100 ML IVPB SCH (00:55)
[2022-06-16] MEDS: Furosemide 20 MG/2 ML VIAL SLOW IVP SCH ×2 (00:55→11:13)
[2022-06-16] MEDS ORDERED: Vancomycin 1.5 GRAM/300 ML BAG 1.5 GM in Premix Bag 1 BAG IVPB SCH (02:00)
[2022-06-16] MEDS: Vancomycin 1 GM in Premix Bag 1 BAG IVPB SCH ×3 (06:29→21:20)
[2022-06-16 07:25] LABS: #Eosinphils 0.3 thou/uL (0.0-0.7); #Lymphocytes 1.3 thou/uL (1.20-3.40); #Monocytes 1.4 thou/uL (0.11-0.59); #Neutrophils 9.7 thou/uL (1.40-6.50); %Basophils 0.3 % (0.0-1.0); %Eosinophils 2.4 % (0.0-10.0); %Lymphocytes 10.4 % (21.0-51.0); %Monocytes 10.8 % (0.0-10.0); %Neutrophils 76.2 % (42.0-75.0); Hemoglobin 7.5 g/dL (14.0-18.0); Mean Corpuscular Hemoglobin 29.7 pg (27.0-31.0); Mean Corpuscular Volume 92.7 fl (78.0-98.0); Mean Platelet Volume 5.9 fL (7.4-10.4); Platelet Count 540 10x3/uL (130-400); Red Blood Cell (RBC) Count 2.52 mill/uL (4.70-6.10); White Blood Cell (WBC) Count 12.7 10x3/uL (4.8-10.8)
[2022-06-16 07:37] LABS: Anion Gap 14 mmol/L (10-20); BUN (Urea Nitrogen) 20 mg/dL (8.9-20.6); Calc. Creatinine Clearance 171 mL/min (70-130); Calcium 8.8 mg/dL (7.8-10.44); Carbon Dioxide 23 mmol/L (22-29); Chloride 100 mmol/L (98-107); Estimated GFR 94; Glucose 100 mg/dL (70-105); Magnesium 1.8 mg/dL (1.6-2.6); Phosphorus 3.8 mg/dL (2.3-4.7); Potassium 4.2 mmol/L (3.5-5.1); Sodium 133 mmol/L (136-145)
[2022-06-16] MEDS: Senokot S 8.6-50 MG TAB PO SCH ×2 (08:46→21:20)
[2022-06-16] MEDS: Gabapentin 300 MG CAP PO SCH ×2 (08:47→21:20)
[2022-06-16] MEDS: Ascorbic Acid 500 mg Chewable Tablet PO SCH (08:47)
[2022-06-16] MEDS: Bacitracin 1 PK TOP SCH (08:47)
[2022-06-16] MEDS: Ferrous Sulfate 325 MG TAB PO SCH (08:48)
[2022-06-16] MEDS: Famotidine 20 MG TAB PO SCH ×2 (08:48→21:20)
[2022-06-16] MEDS: Saccharomyces boulardii 250 MG CAP PO SCH (08:48)
[2022-06-16] MEDS: Polyethylene Glycol 3350 17 GM Packet PO SCH (10:31)
[2022-06-16] MEDS: HYDROmorphone 2 MG/ML VIAL SLOW IVP PRN (11:02)
[2022-06-16] MEDS: Cyclobenzaprine 10 MG TAB PO PRN (21:20)
[2022-06-17 05:27] LABS: #Eosinphils 0.1 thou/uL (0.0-0.7); #Lymphocytes 1.6 thou/uL (1.20-3.40); #Monocytes 1.3 thou/uL (0.11-0.59); #Neutrophils 7.9 thou/uL (1.40-6.50); %Basophils 0.3 % (0.0-1.0); %Eosinophils 0.9 % (0.0-10.0); %Lymphocytes 14.5 % (21.0-51.0); %Monocytes 12.1 % (0.0-10.0); %Neutrophils 72.2 % (42.0-75.0); Hemoglobin 8.3 g/dL (14.0-18.0); Mean Corpuscular HGB CONC 31.7 g/dL (32.0-36.0); Mean Corpuscular Hemoglobin 29.7 pg (27.0-31.0); Mean Corpuscular Volume 93.8 fl (78.0-98.0); Platelet Count 563 10x3/uL (130-400); Red Blood Cell (RBC) Count 2.79 mill/uL (4.70-6.10)
[2022-06-17 05:38] LABS: Vancomycin, Trough 14.4 ug/mL
[2022-06-17 05:42] LABS: Anion Gap 13 mmol/L (10-20); BUN (Urea Nitrogen) 16 mg/dL (8.9-20.6); Calc. Creatinine Clearance 174 mL/min (70-130); Calcium 9.1 mg/dL (7.8-10.44); Carbon Dioxide 25 mmol/L (22-29); Chloride 100 mmol/L (98-107); Estimated GFR 96; Glucose 94 mg/dL (70-105); Magnesium 2.1 mg/dL (1.6-2.6); Potassium 4.4 mmol/L (3.5-5.1); Sodium 134 mmol/L (136-145)
[2022-06-17] MEDS: traMADol HCl 50 MG TAB PO SCH ×4 (06:28→23:26)
[2022-06-17] MEDS: Acetaminophen 500 MG TAB PO SCH ×4 (06:28→23:27)
[2022-06-17] MEDS: Vancomycin 1 GM in Premix Bag 1 BAG IVPB SCH ×3 (06:31→20:55)
[2022-06-17] MEDS: Senokot S 8.6-50 MG TAB PO SCH ×2 (10:06→20:53)
[2022-06-17] MEDS: Ferrous Sulfate 325 MG TAB PO SCH ×2 (10:06→10:07)
[2022-06-17] MEDS: Bacitracin 1 PK TOP SCH (10:06)
[2022-06-17] MEDS: Saccharomyces boulardii 250 MG CAP PO SCH (10:06)
[2022-06-17] MEDS: Gabapentin 300 MG CAP PO SCH ×2 (10:06→20:51)
[2022-06-17] MEDS: Furosemide 20 MG/2 ML VIAL SLOW IVP SCH (10:07)
[2022-06-17] MEDS: Famotidine 20 MG TAB PO SCH ×2 (10:07→20:51)
[2022-06-17] MEDS: Ascorbic Acid 500 mg Chewable Tablet PO SCH (10:07)
[2022-06-17] MEDS: HYDROmorphone 2 MG/ML VIAL SLOW IVP PRN (11:14)
[2022-06-17] MEDS ORDERED: Furosemide 20 MG/2 ML VIAL SLOW IVP SCH ×3 (11:33→18:00)
[2022-06-17] MEDS: Polyethylene Glycol 3350 17 GM Packet PO SCH (11:43)
[2022-06-18 04:53] LABS: #Eosinphils 0.2 thou/uL (0.0-0.7); #Lymphocytes 1.4 thou/uL (1.20-3.40); #Monocytes 1.5 thou/uL (0.11-0.59); #Neutrophils 7.2 thou/uL (1.40-6.50); %Basophils 0.3 % (0.0-1.0); %Eosinophils 2.1 % (0.0-10.0); %Lymphocytes 13.9 % (21.0-51.0); %Monocytes 14.1 % (0.0-10.0); %Neutrophils 69.6 % (42.0-75.0); Hemoglobin 8.5 g/dL (14.0-18.0); Mean Corpuscular HGB CONC 32.3 g/dL (32.0-36.0); Mean Corpuscular Hemoglobin 29.7 pg (27.0-31.0); Mean Platelet Volume 5.7 fL (7.4-10.4); Platelet Count 516 10x3/uL (130-400); Red Blood Cell (RBC) Count 2.87 mill/uL (4.70-6.10); White Blood Cell (WBC) Count 10.3 10x3/uL (4.8-10.8)
[2022-06-18] MEDS: traMADol HCl 50 MG TAB PO SCH ×3 (05:23→18:22)
[2022-06-18] MEDS: Acetaminophen 500 MG TAB PO SCH ×3 (05:23→18:22)
[2022-06-18] MEDS: Vancomycin 1 GM in Premix Bag 1 BAG IVPB SCH ×3 (05:24→22:29)
[2022-06-18 05:34] LABS: Anion Gap 14 mmol/L (10-20); BUN (Urea Nitrogen) 18 mg/dL (8.9-20.6); Calc. Creatinine Clearance 182 mL/min (70-130); Calcium 9.1 mg/dL (7.8-10.44); Carbon Dioxide 27 mmol/L (22-29); Chloride 100 mmol/L (98-107); Estimated GFR 101; Glucose 97 mg/dL (70-105); Phosphorus 4.4 mg/dL (2.3-4.7); Potassium 4.1 mmol/L (3.5-5.1); Sodium 137 mmol/L (136-145)
[2022-06-18] MEDS: Bacitracin 1 PK TOP SCH (09:51)
[2022-06-18] MEDS: Famotidine 20 MG TAB PO SCH ×2 (09:51→20:18)
[2022-06-18] MEDS: Senokot S 8.6-50 MG TAB PO SCH ×2 (09:52→20:19)
[2022-06-18] MEDS: Ascorbic Acid 500 mg Chewable Tablet PO SCH (09:52)
[2022-06-18] MEDS: Gabapentin 300 MG CAP PO SCH ×2 (09:52→20:17)
[2022-06-18] MEDS: Saccharomyces boulardii 250 MG CAP PO SCH (09:52)
[2022-06-18] MEDS: Ferrous Sulfate 325 MG TAB PO SCH (09:52)
[2022-06-18] MEDS: Polyethylene Glycol 3350 17 GM Packet PO SCH (09:53)
[2022-06-18] MEDS: Cyclobenzaprine 10 MG TAB PO PRN (20:17)
[2022-06-18] MEDS: Ibuprofen 200 MG TAB PO PRN (20:25)
[2022-06-19] MEDS: Acetaminophen 500 MG TAB PO SCH ×5 (00:15→23:58)
[2022-06-19] MEDS: traMADol HCl 50 MG TAB PO SCH ×5 (00:16→23:57)
[2022-06-19 06:24] LABS: Vancomycin, Trough 16.7 ug/mL
[2022-06-19] MEDS: Vancomycin 1 GM in Premix Bag 1 BAG IVPB SCH (06:50)
[2022-06-19] MEDS: Cyclobenzaprine 10 MG TAB PO PRN ×2 (09:14→19:45)
[2022-06-19] MEDS: Saccharomyces boulardii 250 MG CAP PO SCH (09:15)
[2022-06-19] MEDS: Ascorbic Acid 500 mg Chewable Tablet PO SCH (09:15)
[2022-06-19] MEDS: Bacitracin 1 PK TOP SCH (09:15)
[2022-06-19] MEDS: Ferrous Sulfate 325 MG TAB PO SCH (09:15)
[2022-06-19] MEDS: Gabapentin 300 MG CAP PO SCH ×2 (09:16→21:03)
[2022-06-19] MEDS: Famotidine 20 MG TAB PO SCH ×2 (09:16→21:03)
[2022-06-19] MEDS: Polyethylene Glycol 3350 17 GM Packet PO SCH (09:17)
[2022-06-19] MEDS: Senokot S 8.6-50 MG TAB PO SCH ×2 (09:18→21:04)
[2022-06-20] MEDS: traMADol HCl 50 MG TAB PO SCH ×4 (06:02→23:36)
[2022-06-20] MEDS: Acetaminophen 500 MG TAB PO SCH ×4 (06:03→23:36)
[2022-06-20 07:06] LABS: #Eosinphils 0.2 thou/uL (0.0-0.7); #Lymphocytes 1.2 thou/uL (1.20-3.40); #Monocytes 0.8 thou/uL (0.11-0.59); #Neutrophils 4.8 thou/uL (1.40-6.50); %Basophils 0.4 % (0.0-1.0); %Eosinophils 2.7 % (0.0-10.0); %Lymphocytes 16.7 % (21.0-51.0); %Monocytes 11.7 % (0.0-10.0); %Neutrophils 68.5 % (42.0-75.0); Mean Corpuscular Hemoglobin 29.3 pg (27.0-31.0); Mean Corpuscular Volume 91.5 fl (78.0-98.0); Mean Platelet Volume 5.9 fL (7.4-10.4); Platelet Count 469 10x3/uL (130-400); RBC Distribution Width 13.5 % (11.5-14.5); Red Blood Cell (RBC) Count 2.72 mill/uL (4.70-6.10)
[2022-06-20] MEDS: Ascorbic Acid 500 mg Chewable Tablet PO SCH (08:56)
[2022-06-20] MEDS: Bacitracin 1 PK TOP SCH (08:57)
[2022-06-20] MEDS: Famotidine 20 MG TAB PO SCH ×2 (08:58→21:12)
[2022-06-20] MEDS: Gabapentin 300 MG CAP PO SCH ×2 (08:58→21:13)
[2022-06-20] MEDS: Polyethylene Glycol 3350 17 GM Packet PO SCH (08:59)
[2022-06-20] MEDS: Saccharomyces boulardii 250 MG CAP PO SCH (08:59)
[2022-06-20] MEDS: Senokot S 8.6-50 MG TAB PO SCH ×2 (09:00→21:13)
[2022-06-20] MEDS: Ibuprofen 200 MG TAB PO PRN (10:01)
[2022-06-20] MEDS: HYDROmorphone 2 MG/ML VIAL SLOW IVP PRN (11:37)
[2022-06-21] MEDS: Acetaminophen 500 MG TAB PO SCH ×4 (05:52→23:47)
[2022-06-21] MEDS: traMADol HCl 50 MG TAB PO SCH ×4 (05:52→23:46)
[2022-06-21] MEDS: Ferrous Sulfate 325 MG TAB PO SCH (09:37)
[2022-06-21] MEDS: Bacitracin 1 PK TOP SCH (09:37)
[2022-06-21] MEDS: Gabapentin 300 MG CAP PO SCH ×2 (09:37→20:36)
[2022-06-21] MEDS: Famotidine 20 MG TAB PO SCH ×2 (09:37→20:36)
[2022-06-21] MEDS: Saccharomyces boulardii 250 MG CAP PO SCH (09:37)
[2022-06-21] MEDS: Ascorbic Acid 500 mg Chewable Tablet PO SCH (09:37)
[2022-06-21] MEDS: Senokot S 8.6-50 MG TAB PO SCH ×2 (09:39→20:35)
[2022-06-21] MEDS: Polyethylene Glycol 3350 17 GM Packet PO SCH (09:39)
[2022-06-22] MEDS: Acetaminophen 500 MG TAB PO SCH ×4 (05:23→23:24)
[2022-06-22] MEDS: traMADol HCl 50 MG TAB PO SCH ×4 (05:23→23:24)
[2022-06-22] MEDS: Gabapentin 300 MG CAP PO SCH ×2 (08:13→19:56)
[2022-06-22] MEDS: Ascorbic Acid 500 mg Chewable Tablet PO SCH (08:13)
[2022-06-22] MEDS: Saccharomyces boulardii 250 MG CAP PO SCH (08:13)
[2022-06-22] MEDS: Ferrous Sulfate 325 MG TAB PO SCH (08:13)
[2022-06-22] MEDS: Famotidine 20 MG TAB PO SCH ×2 (08:13→19:56)
[2022-06-22] MEDS: Bacitracin 1 PK TOP SCH (08:13)
[2022-06-22] MEDS: Senokot S 8.6-50 MG TAB PO SCH ×2 (08:14→19:58)
[2022-06-22] MEDS: Polyethylene Glycol 3350 17 GM Packet PO SCH (08:14)
[2022-06-22] MEDS: HYDROmorphone 2 MG/ML VIAL SLOW IVP PRN (11:43)
[2022-06-23] MEDS: traMADol HCl 50 MG TAB PO SCH ×4 (05:44→23:58)
[2022-06-23] MEDS: Acetaminophen 500 MG TAB PO SCH ×4 (05:44→23:58)
[2022-06-23] MEDS: Ferrous Sulfate 325 MG TAB PO SCH (08:36)
[2022-06-23] MEDS: Saccharomyces boulardii 250 MG CAP PO SCH (08:36)
[2022-06-23] MEDS: Gabapentin 300 MG CAP PO SCH ×2 (08:36→21:32)
[2022-06-23] MEDS: Bacitracin 1 PK TOP SCH (08:36)
[2022-06-23] MEDS: Famotidine 20 MG TAB PO SCH ×2 (08:36→21:32)
[2022-06-23] MEDS: Ascorbic Acid 500 mg Chewable Tablet PO SCH (08:36)
[2022-06-23] MEDS: Senokot S 8.6-50 MG TAB PO SCH ×2 (08:37→21:32)
[2022-06-23] MEDS: Polyethylene Glycol 3350 17 GM Packet PO SCH (08:37)
[2022-06-24] MEDS: traMADol HCl 50 MG TAB PO SCH ×4 (05:22→23:16)
[2022-06-24] MEDS: Acetaminophen 500 MG TAB PO SCH ×4 (05:23→23:17)
[2022-06-24 06:42] LABS: #Eosinphils 0.2 thou/uL (0.0-0.7); #Lymphocytes 1.3 thou/uL (1.20-3.40); #Monocytes 0.7 thou/uL (0.11-0.59); #Neutrophils 3.6 thou/uL (1.40-6.50); %Basophils 0.7 % (0.0-1.0); %Eosinophils 3.4 % (0.0-10.0); %Lymphocytes 22.5 % (21.0-51.0); %Monocytes 11.5 % (0.0-10.0); %Neutrophils 61.8 % (42.0-75.0); Hemoglobin 8.6 g/dL (14.0-18.0); Mean Corpuscular HGB CONC 31.8 g/dL (32.0-36.0); Mean Corpuscular Hemoglobin 28.7 pg (27.0-31.0); Mean Corpuscular Volume 90.4 fl (78.0-98.0); Mean Platelet Volume 6.1 fL (7.4-10.4); Platelet Count 396 10x3/uL (130-400); RBC Distribution Width 13.9 % (11.5-14.5); White Blood Cell (WBC) Count 5.8 10x3/uL (4.8-10.8)
[2022-06-24] MEDS: HYDROmorphone 2 MG/ML VIAL SLOW IVP PRN (07:39)
[2022-06-24] MEDS: HYDROmorphone 0.5 MG/0.5 ML SYRINGE SLOW IVP PRN (08:36)
[2022-06-24] MEDS: Bacitracin 1 PK TOP SCH (09:37)
[2022-06-24] MEDS: Saccharomyces boulardii 250 MG CAP PO SCH (09:37)
[2022-06-24] MEDS: Ferrous Sulfate 325 MG TAB PO SCH (09:37)
[2022-06-24] MEDS: Gabapentin 300 MG CAP PO SCH ×2 (09:37→21:04)
[2022-06-24] MEDS: Ascorbic Acid 500 mg Chewable Tablet PO SCH (09:37)
[2022-06-24] MEDS: Famotidine 20 MG TAB PO SCH ×2 (09:37→21:04)
[2022-06-24] MEDS: Polyethylene Glycol 3350 17 GM Packet PO SCH (09:38)
[2022-06-24] MEDS: Senokot S 8.6-50 MG TAB PO SCH ×2 (09:38→21:03)
[2022-06-24] MEDS: Ibuprofen 200 MG TAB PO PRN (21:03)
[2022-06-25] MEDS: Acetaminophen 500 MG TAB PO SCH ×3 (05:27→17:53)
[2022-06-25] MEDS: traMADol HCl 50 MG TAB PO SCH ×3 (05:28→17:52)
[2022-06-25] MEDS: Ascorbic Acid 500 mg Chewable Tablet PO SCH (08:40)
[2022-06-25] MEDS: Ferrous Sulfate 325 MG TAB PO SCH (08:41)
[2022-06-25] MEDS: Senokot S 8.6-50 MG TAB PO SCH ×2 (08:41→21:58)
[2022-06-25] MEDS: Polyethylene Glycol 3350 17 GM Packet PO SCH (08:41)
[2022-06-25] MEDS: Famotidine 20 MG TAB PO SCH ×2 (08:41→21:56)
[2022-06-25] MEDS: Gabapentin 300 MG CAP PO SCH ×2 (08:41→21:58)
[2022-06-25] MEDS: Saccharomyces boulardii 250 MG CAP PO SCH (08:41)
[2022-06-25] MEDS: Cyclobenzaprine 10 MG TAB PO PRN (21:58)
[2022-06-26] MEDS: Acetaminophen 500 MG TAB PO SCH ×4 (00:10→17:29)
[2022-06-26] MEDS: traMADol HCl 50 MG TAB PO SCH ×4 (00:11→17:29)
[2022-06-26] MEDS: Ascorbic Acid 500 mg Chewable Tablet PO SCH (08:57)
[2022-06-26] MEDS: Famotidine 20 MG TAB PO SCH ×2 (08:58→21:40)
[2022-06-26] MEDS: Ferrous Sulfate 325 MG TAB PO SCH (08:59)
[2022-06-26] MEDS: Gabapentin 300 MG CAP PO SCH ×2 (08:59→21:40)
[2022-06-26] MEDS: Polyethylene Glycol 3350 17 GM Packet PO SCH (09:01)
[2022-06-26] MEDS: Saccharomyces boulardii 250 MG CAP PO SCH (09:01)
[2022-06-26] MEDS: Senokot S 8.6-50 MG TAB PO SCH ×2 (09:02→21:43)
[2022-06-26] MEDS: Cyclobenzaprine 10 MG TAB PO PRN (21:43)
[2022-06-27] MEDS: Acetaminophen 500 MG TAB PO SCH ×5 (00:02→23:55)
[2022-06-27] MEDS: traMADol HCl 50 MG TAB PO SCH ×5 (00:03→23:53)
[2022-06-27 06:12] LABS: #Eosinphils 0.3 thou/uL (0.0-0.7); #Lymphocytes 1.4 thou/uL (1.20-3.40); #Monocytes 0.8 thou/uL (0.11-0.59); #Neutrophils 4.1 thou/uL (1.40-6.50); %Basophils 0.3 % (0.0-1.0); %Eosinophils 4.2 % (0.0-10.0); %Lymphocytes 21.4 % (21.0-51.0); %Monocytes 11.5 % (0.0-10.0); %Neutrophils 62.6 % (42.0-75.0); Hemoglobin 9.5 g/dL (14.0-18.0); Mean Corpuscular HGB CONC 32.7 g/dL (32.0-36.0); Mean Corpuscular Hemoglobin 29.1 pg (27.0-31.0); Mean Corpuscular Volume 88.9 fl (78.0-98.0); Mean Platelet Volume 6.3 fL (7.4-10.4); Platelet Count 311 10x3/uL (130-400); RBC Distribution Width 14.5 % (11.5-14.5); Red Blood Cell (RBC) Count 3.27 mill/uL (4.70-6.10); White Blood Cell (WBC) Count 6.6 10x3/uL (4.8-10.8)
[2022-06-27 06:26] LABS: Anion Gap 12 mmol/L (10-20); BUN (Urea Nitrogen) 14 mg/dL (8.9-20.6); Calc. Creatinine Clearance 224 mL/min (70-130); Calcium 9.3 mg/dL (7.8-10.44); Carbon Dioxide 23 mmol/L (22-29); Chloride 105 mmol/L (98-107); Estimated GFR 114; Glucose 81 mg/dL (70-105); Magnesium 1.7 mg/dL (1.6-2.6); Potassium 4.1 mmol/L (3.5-5.1); Sodium 136 mmol/L (136-145)
[2022-06-27] MEDS: HYDROmorphone 2 MG/ML VIAL SLOW IVP PRN (10:51)
[2022-06-27] MEDS: Ascorbic Acid 500 mg Chewable Tablet PO SCH (11:44)
[2022-06-27] MEDS: Gabapentin 300 MG CAP PO SCH ×2 (11:45→20:26)
[2022-06-27] MEDS: Famotidine 20 MG TAB PO SCH ×2 (11:45→20:26)
[2022-06-27] MEDS: Ferrous Sulfate 325 MG TAB PO SCH (11:45)
[2022-06-27] MEDS: Polyethylene Glycol 3350 17 GM Packet PO SCH (11:46)
[2022-06-27] MEDS: Saccharomyces boulardii 250 MG CAP PO SCH (11:46)
[2022-06-27] MEDS: Senokot S 8.6-50 MG TAB PO SCH ×2 (11:47→20:27)
[2022-06-27] MEDS: Cyclobenzaprine 10 MG TAB PO PRN (20:26)
[2022-06-28] MEDS: Acetaminophen 500 MG TAB PO SCH ×3 (05:30→17:15)
[2022-06-28] MEDS: traMADol HCl 50 MG TAB PO SCH ×3 (05:31→17:15)
[2022-06-28] MEDS: Polyethylene Glycol 3350 17 GM Packet PO SCH (08:38)
[2022-06-28] MEDS: Senokot S 8.6-50 MG TAB PO SCH ×2 (08:38→22:06)
[2022-06-28] MEDS: Saccharomyces boulardii 250 MG CAP PO SCH (08:39)
[2022-06-28] MEDS: Gabapentin 300 MG CAP PO SCH ×2 (08:39→22:05)
[2022-06-28] MEDS: Ferrous Sulfate 325 MG TAB PO SCH (08:39)
[2022-06-28] MEDS: Ascorbic Acid 500 mg Chewable Tablet PO SCH (08:39)
[2022-06-28] MEDS: Famotidine 20 MG TAB PO SCH ×2 (08:39→22:05)
[2022-06-29] MEDS: Acetaminophen 500 MG TAB PO SCH ×5 (00:27→23:57)
[2022-06-29] MEDS: traMADol HCl 50 MG TAB PO SCH ×5 (00:27→23:58)
[2022-06-29] MEDS: HYDROmorphone 2 MG/ML VIAL SLOW IVP PRN (09:30)
[2022-06-29] MEDS: Famotidine 20 MG TAB PO SCH ×2 (09:36→21:35)
[2022-06-29] MEDS: Ferrous Sulfate 325 MG TAB PO SCH (09:37)
[2022-06-29] MEDS: Polyethylene Glycol 3350 17 GM Packet PO SCH (09:37)
[2022-06-29] MEDS: Senokot S 8.6-50 MG TAB PO SCH ×2 (09:37→21:37)
[2022-06-29] MEDS: Gabapentin 300 MG CAP PO SCH ×2 (09:37→21:36)
[2022-06-29] MEDS: Ascorbic Acid 500 mg Chewable Tablet PO SCH (09:37)
[2022-06-29] MEDS: Saccharomyces boulardii 250 MG CAP PO SCH (09:37)
[2022-06-29] MEDS: Cyclobenzaprine 10 MG TAB PO PRN (23:58)
[2022-06-30] MEDS: traMADol HCl 50 MG TAB PO SCH ×4 (05:59→23:05)
[2022-06-30] MEDS: Acetaminophen 500 MG TAB PO SCH ×4 (06:01→23:04)
[2022-06-30] MEDS ORDERED: HYDROmorphone 0.5 MG/0.5 ML SYRINGE SLOW IVP PRN (09:55)
[2022-06-30] MEDS: Cyclobenzaprine 10 MG TAB PO PRN (10:39)
[2022-06-30] MEDS: Ibuprofen 200 MG TAB PO PRN (10:39)
[2022-06-30] MEDS: Ferrous Sulfate 325 MG TAB PO SCH (10:41)
[2022-06-30] MEDS: Ascorbic Acid 500 mg Chewable Tablet PO SCH (10:41)
[2022-06-30] MEDS: Saccharomyces boulardii 250 MG CAP PO SCH (10:42)
[2022-06-30] MEDS: Famotidine 20 MG TAB PO SCH ×2 (10:43→20:36)
[2022-06-30] MEDS: Gabapentin 300 MG CAP PO SCH ×4 (10:43→20:36)
[2022-06-30] MEDS: Senokot S 8.6-50 MG TAB PO SCH ×2 (10:44→20:37)
[2022-06-30] MEDS: Polyethylene Glycol 3350 17 GM Packet PO SCH (10:44)
[2022-06-30] MEDS: Melatonin 3 MG TAB PO PRN (23:05)
[2022-07-01] MEDS: Acetaminophen 500 MG TAB PO SCH ×4 (05:47→23:06)
[2022-07-01] MEDS: traMADol HCl 50 MG TAB PO SCH ×4 (05:47→23:04)
[2022-07-01] MEDS: Gabapentin 300 MG CAP PO SCH ×3 (10:07→21:09)
[2022-07-01] MEDS: Ibuprofen 200 MG TAB PO PRN ×2 (10:08→23:05)
[2022-07-01] MEDS: Saccharomyces boulardii 250 MG CAP PO SCH (10:08)
[2022-07-01] MEDS: Ascorbic Acid 500 mg Chewable Tablet PO SCH (10:08)
[2022-07-01] MEDS: Famotidine 20 MG TAB PO SCH ×2 (10:09→21:08)
[2022-07-01] MEDS: Polyethylene Glycol 3350 17 GM Packet PO SCH (10:13)
[2022-07-01] MEDS: Senokot S 8.6-50 MG TAB PO SCH ×2 (10:14→21:10)
[2022-07-01] MEDS: Ferrous Sulfate 325 MG TAB PO SCH (10:21)
[2022-07-01] MEDS: HYDROmorphone 0.5 MG/0.5 ML SYRINGE SLOW IVP PRN (10:54)
[2022-07-01] MEDS ORDERED: Lidocaine 4% Topical Sol 50 ML BOT TOP SCH (11:15)
[2022-07-01] MEDS: Cyclobenzaprine 10 MG TAB PO PRN (18:59)
[2022-07-02] MEDS: Acetaminophen 500 MG TAB PO SCH ×4 (05:36→23:02)
[2022-07-02] MEDS: traMADol HCl 50 MG TAB PO SCH ×4 (05:37→23:01)
[2022-07-02] MEDS: Famotidine 20 MG TAB PO SCH ×2 (09:31→21:01)
[2022-07-02] MEDS: Saccharomyces boulardii 250 MG CAP PO SCH (09:32)
[2022-07-02] MEDS: Ascorbic Acid 500 mg Chewable Tablet PO SCH (09:32)
[2022-07-02] MEDS: Ferrous Sulfate 325 MG TAB PO SCH (09:32)
[2022-07-02] MEDS: Gabapentin 300 MG CAP PO SCH ×3 (09:32→21:02)
[2022-07-02] MEDS: Ibuprofen 200 MG TAB PO PRN ×2 (09:33→23:02)
[2022-07-02] MEDS: Polyethylene Glycol 3350 17 GM Packet PO SCH (09:38)
[2022-07-02] MEDS: Senokot S 8.6-50 MG TAB PO SCH ×2 (09:38→21:06)
[2022-07-02] MEDS: Melatonin 3 MG TAB PO PRN (23:01)
[2022-07-02] MEDS: Cyclobenzaprine 10 MG TAB PO PRN (23:01)
[2022-07-03] MEDS: traMADol HCl 50 MG TAB PO SCH ×4 (07:16→23:02)
[2022-07-03] MEDS: Acetaminophen 500 MG TAB PO SCH ×4 (07:16→23:02)
[2022-07-03] MEDS: Saccharomyces boulardii 250 MG CAP PO SCH (08:37)
[2022-07-03] MEDS: Ascorbic Acid 500 mg Chewable Tablet PO SCH (08:37)
[2022-07-03] MEDS: Ferrous Sulfate 325 MG TAB PO SCH (08:37)
[2022-07-03] MEDS: Gabapentin 300 MG CAP PO SCH ×3 (08:37→20:43)
[2022-07-03] MEDS: Famotidine 20 MG TAB PO SCH ×2 (08:37→20:44)
[2022-07-03] MEDS: Polyethylene Glycol 3350 17 GM Packet PO SCH (08:38)
[2022-07-03] MEDS: Senokot S 8.6-50 MG TAB PO SCH ×2 (08:38→20:45)
[2022-07-03] MEDS: Ibuprofen 200 MG TAB PO PRN ×2 (14:56→20:45)
[2022-07-04] MEDS: Acetaminophen 500 MG TAB PO SCH ×4 (05:18→23:13)
[2022-07-04] MEDS: traMADol HCl 50 MG TAB PO SCH ×4 (05:19→23:12)
[2022-07-04] MEDS: HYDROmorphone 0.5 MG/0.5 ML SYRINGE SLOW IVP PRN (08:46)
[2022-07-04] MEDS: Polyethylene Glycol 3350 17 GM Packet PO SCH (08:46)
[2022-07-04] MEDS: Famotidine 20 MG TAB PO SCH ×2 (08:46→19:55)
[2022-07-04] MEDS: Saccharomyces boulardii 250 MG CAP PO SCH (08:46)
[2022-07-04] MEDS: Ferrous Sulfate 325 MG TAB PO SCH (08:46)
[2022-07-04] MEDS: Ascorbic Acid 500 mg Chewable Tablet PO SCH (08:46)
[2022-07-04] MEDS: Senokot S 8.6-50 MG TAB PO SCH ×2 (08:46→19:54)
[2022-07-04] MEDS: Gabapentin 300 MG CAP PO SCH ×3 (08:46→19:55)
[2022-07-04] MEDS: Ibuprofen 200 MG TAB PO PRN (20:43)
[2022-07-05] MEDS: traMADol HCl 50 MG TAB PO SCH ×4 (05:52→23:21)
[2022-07-05] MEDS: Acetaminophen 500 MG TAB PO SCH ×4 (05:52→23:21)
[2022-07-05 06:14] LABS: Hemoglobin 10.5 g/dL (14.0-18.0); Platelet Count 250 10x3/uL (130-400)
[2022-07-05] MEDS: Gabapentin 300 MG CAP PO SCH ×3 (09:05→20:53)
[2022-07-05] MEDS: Saccharomyces boulardii 250 MG CAP PO SCH (09:05)
[2022-07-05] MEDS: Senokot S 8.6-50 MG TAB PO SCH ×2 (09:05→20:53)
[2022-07-05] MEDS: Famotidine 20 MG TAB PO SCH ×2 (09:06→20:53)
[2022-07-05] MEDS: Ferrous Sulfate 325 MG TAB PO SCH (09:06)
[2022-07-05] MEDS: Ascorbic Acid 500 mg Chewable Tablet PO SCH (09:06)
[2022-07-05] MEDS: Polyethylene Glycol 3350 17 GM Packet PO SCH (09:08)
[2022-07-05] MEDS ORDERED: CEFAZOLIN 2 GM in Sodium Chloride 0.9% 100 ML IVPB SCH (19:45)
[2022-07-05] MEDS: Ibuprofen 200 MG TAB PO PRN (20:58)
[2022-07-06] MEDS: traMADol HCl 50 MG TAB PO SCH ×3 (05:52→18:30)
[2022-07-06] MEDS: Acetaminophen 500 MG TAB PO SCH ×3 (05:53→18:30)
[2022-07-06 06:45] LABS: #Eosinphils 0.6 thou/uL (0.0-0.7); #Lymphocytes 1.2 thou/uL (1.20-3.40); #Monocytes 0.9 thou/uL (0.11-0.59); %Basophils 0.4 % (0.0-1.0); %Eosinophils 8.4 % (0.0-10.0); %Lymphocytes 18.4 % (21.0-51.0); %Monocytes 12.8 % (0.0-10.0); %Neutrophils 60.1 % (42.0-75.0); Hemoglobin 10.5 g/dL (14.0-18.0); Mean Corpuscular HGB CONC 32.3 g/dL (32.0-36.0); Mean Corpuscular Hemoglobin 28.1 pg (27.0-31.0); Mean Corpuscular Volume 86.9 fl (78.0-98.0); Mean Platelet Volume 6.7 fL (7.4-10.4); Platelet Count 256 10x3/uL (130-400); Red Blood Cell (RBC) Count 3.73 mill/uL (4.70-6.10); White Blood Cell (WBC) Count 6.7 10x3/uL (4.8-10.8)
[2022-07-06 07:00] LABS: ALT (SGPT) 15 U/L (8-55); AST (SGOT) 14 U/L (5-34); Albumin 3.8 g/dL (3.5-5.0); Alkaline Phosphatase 90 U/L (40-110); Anion Gap 12 mmol/L (10-20); BUN (Urea Nitrogen) 16 mg/dL (8.9-20.6); Bilirubin, Total 0.6 mg/dL (0.2-1.2); Calc. Creatinine Clearance 227 mL/min (70-130); Calcium 9.4 mg/dL (7.8-10.44); Carbon Dioxide 26 mmol/L (22-29); Chloride 104 mmol/L (98-107); Estimated GFR 115; Globulin 3.6 g/dL (2.4-3.5); Glucose 93 mg/dL (70-105); Potassium 3.9 mmol/L (3.5-5.1); Protein, Total 7.4 g/dL (6.0-8.3); Sodium 138 mmol/L (136-145)
[2022-07-06] MEDS: Saccharomyces boulardii 250 MG CAP PO SCH (08:44)
[2022-07-06] MEDS: Ferrous Sulfate 325 MG TAB PO SCH (08:44)
[2022-07-06] MEDS: Famotidine 20 MG TAB PO SCH ×2 (08:44→20:17)
[2022-07-06] MEDS: Gabapentin 300 MG CAP PO SCH ×3 (08:44→20:17)
[2022-07-06] MEDS: Ascorbic Acid 500 mg Chewable Tablet PO SCH (08:46)
[2022-07-06] MEDS: Senokot S 8.6-50 MG TAB PO SCH ×2 (08:47→20:18)
[2022-07-06] MEDS: Polyethylene Glycol 3350 17 GM Packet PO SCH (08:47)
[2022-07-06] MEDS ORDERED: Bupivacaine PF 0.5% 30 ML VIAL ONE (14:09)
[2022-07-06] MEDS ORDERED: Mineral Oil Sterile 10 ML VIAL ONE (14:09)
[2022-07-06] MEDS ORDERED: Thrombin 5000 UNITS/5 ML VIAL ONE ×2 (14:09→16:44)
[2022-07-06] MEDS ORDERED: Bacitracin Zinc Ointment 30 gm TUBE ONE (14:09)
[2022-07-06] MEDS ORDERED: Neomycin-Polymyxin 1 ML AMP ONE ×2 (14:09→15:38)
[2022-07-06] MEDS ORDERED: CEFAZOLIN 2 GM VIAL ONE (14:43)
[2022-07-06] MEDS ORDERED: Sodium Chloride 0.9% 100 ML ONE (14:43)
[2022-07-06] MEDS ORDERED: Fentanyl 250 MCG/5 ML VIAL ONE (14:58)
[2022-07-06] MEDS ORDERED: HYDROmorphone 2 MG/ML VIAL ONE (14:58)
[2022-07-06] MEDS ORDERED: Lidocaine 1% PF 5 ML VIAL ONE (14:59)
[2022-07-06] MEDS ORDERED: PROPOFOL 200 MG/20 ML VIAL ONE (14:59)
[2022-07-06] MEDS ORDERED: Ondansetron PF 4 MG/2 ML Vial ONE (14:59)
[2022-07-06] MEDS ORDERED: Dexamethasone 20 MG/5 ML VIAL ONE (14:59)
[2022-07-06] MEDS ORDERED: Tobramycin Sulfate 1.2 GM VIAL ONE (15:44)
[2022-07-06] MEDS ORDERED: Fentanyl 100 MCG/2 ML VIAL ONE (18:07)
[2022-07-06] MEDS ORDERED: Ondansetron HCl/PF 4 MG/2 ML Vial IVP PRN (19:00)
[2022-07-06] MEDS ORDERED: Promethazine HCl 25 MG/ML VIAL IM/IV PRN (19:00)
[2022-07-06] MEDS: Ibuprofen 200 MG TAB PO PRN (20:17)
[2022-07-07] MEDS: Acetaminophen 500 MG TAB PO SCH ×5 (00:51→23:52)
[2022-07-07] MEDS: traMADol HCl 50 MG TAB PO SCH ×5 (00:51→23:53)
[2022-07-07 06:38] LABS: #Monocytes 0.9 thou/uL (0.11-0.59); #Neutrophils 8.3 thou/uL (1.40-6.50); %Basophils 0.1 % (0.0-1.0); %Eosinophils 0.4 % (0.0-10.0); %Lymphocytes 9.7 % (21.0-51.0); %Monocytes 8.5 % (0.0-10.0); %Neutrophils 81.3 % (42.0-75.0); Hemoglobin 9.2 g/dL (14.0-18.0); Mean Corpuscular HGB CONC 32.6 g/dL (32.0-36.0); Mean Corpuscular Hemoglobin 27.9 pg (27.0-31.0); Mean Corpuscular Volume 85.5 fl (78.0-98.0); Mean Platelet Volume 6.8 fL (7.4-10.4); Platelet Count 293 10x3/uL (130-400); RBC Distribution Width 14.1 % (11.5-14.5); White Blood Cell (WBC) Count 10.2 10x3/uL (4.8-10.8)
[2022-07-07 07:01] LABS: Anion Gap 13 mmol/L (10-20); BUN (Urea Nitrogen) 16 mg/dL (8.9-20.6); Calc. Creatinine Clearance 227 mL/min (70-130); Calcium 8.9 mg/dL (7.8-10.44); Carbon Dioxide 23 mmol/L (22-29); Chloride 104 mmol/L (98-107); Estimated GFR 115; Glucose 112 mg/dL (70-105); Magnesium 1.8 mg/dL (1.6-2.6); Phosphorus 3.8 mg/dL (2.3-4.7); Potassium 4.3 mmol/L (3.5-5.1); Sodium 136 mmol/L (136-145)
[2022-07-07] MEDS ORDERED: PHOS-NAK 1 PKT PACK PO SCH (08:00)
[2022-07-07] MEDS ORDERED: Magnesium 2 GM/50 ML(in water) 2 GM in Premix Bag 1 BAG IVPB SCH (08:00)
[2022-07-07] MEDS: Senokot S 8.6-50 MG TAB PO SCH ×2 (08:14→20:49)
[2022-07-07] MEDS: Polyethylene Glycol 3350 17 GM Packet PO SCH (08:14)
[2022-07-07] MEDS: Ferrous Sulfate 325 MG TAB PO SCH (08:16)
[2022-07-07] MEDS: Famotidine 20 MG TAB PO SCH ×2 (08:16→20:49)
[2022-07-07] MEDS: Saccharomyces boulardii 250 MG CAP PO SCH (08:16)
[2022-07-07] MEDS: Ascorbic Acid 500 mg Chewable Tablet PO SCH (08:16)
[2022-07-07] MEDS: Gabapentin 300 MG CAP PO SCH ×3 (08:17→20:49)
[2022-07-07] MEDS: Cyclobenzaprine 10 MG TAB PO PRN (20:49)
[2022-07-07] MEDS: Ibuprofen 200 MG TAB PO PRN (23:52)
[2022-07-08] MEDS: Acetaminophen 500 MG TAB PO SCH ×3 (05:23→18:16)
[2022-07-08] MEDS: traMADol HCl 50 MG TAB PO SCH ×3 (05:23→18:15)
[2022-07-08] MEDS: HYDROmorphone 0.5 MG/0.5 ML SYRINGE SLOW IVP PRN (09:00)
[2022-07-08] MEDS ORDERED: Morphine 4 MG/ML VIAL ONE (09:20)
[2022-07-08] MEDS: Gabapentin 300 MG CAP PO SCH ×3 (09:24→20:31)
[2022-07-08] MEDS: Saccharomyces boulardii 250 MG CAP PO SCH (09:24)
[2022-07-08] MEDS: Ascorbic Acid 500 mg Chewable Tablet PO SCH (09:24)
[2022-07-08] MEDS: Famotidine 20 MG TAB PO SCH ×2 (09:25→20:32)
[2022-07-08] MEDS: Ferrous Sulfate 325 MG TAB PO SCH (09:26)
[2022-07-08] MEDS ORDERED: Morphine 4 MG/ML VIAL SLOW IVP SCH (09:30)
[2022-07-08] MEDS: Senokot S 8.6-50 MG TAB PO SCH ×2 (09:42→20:31)
[2022-07-08] MEDS: Polyethylene Glycol 3350 17 GM Packet PO SCH (09:42)
[2022-07-08] MEDS: Ibuprofen 200 MG TAB PO PRN ×2 (12:12→20:35)
[2022-07-09] MEDS: Acetaminophen 500 MG TAB PO SCH ×4 (00:16→17:50)
[2022-07-09] MEDS: traMADol HCl 50 MG TAB PO SCH ×4 (00:17→17:50)
[2022-07-09] MEDS: Cyclobenzaprine 10 MG TAB PO PRN (03:17)
[2022-07-09] MEDS ORDERED: SULFAMETHOXAZOLE IVPB SCH ×2 (09:00→10:00)
[2022-07-09] MEDS ORDERED: TRIMETHOPRIM IVPB SCH ×2 (09:00→10:00)
[2022-07-09] MEDS: Gabapentin 300 MG CAP PO SCH ×3 (09:43→20:35)
[2022-07-09] MEDS: Famotidine 20 MG TAB PO SCH ×2 (09:43→20:35)
[2022-07-09] MEDS: Ferrous Sulfate 325 MG TAB PO SCH (09:43)
[2022-07-09] MEDS: Saccharomyces boulardii 250 MG CAP PO SCH (09:43)
[2022-07-09] MEDS: Ibuprofen 200 MG TAB PO PRN ×2 (09:43→20:34)
[2022-07-09] MEDS: Ascorbic Acid 500 mg Chewable Tablet PO SCH (09:43)
[2022-07-09] MEDS: Senokot S 8.6-50 MG TAB PO SCH ×2 (09:44→20:35)
[2022-07-09] MEDS: Polyethylene Glycol 3350 17 GM Packet PO SCH (09:44)
[2022-07-09] MEDS ORDERED: WATER IVPB SCH (10:00)
[2022-07-09] MEDS ORDERED: DEXTROSE 5% IVPB SCH (10:00)
[2022-07-09] MEDS: DEXTROSE 5% IVPB SCH (14:45)
[2022-07-09] MEDS: TRIMETHOPRIM IVPB SCH (14:45)
[2022-07-09] MEDS: SULFAMETHOXAZOLE IVPB SCH (14:45)
[2022-07-09] MEDS: WATER IVPB SCH (14:45)
[2022-07-10] MEDS: Acetaminophen 500 MG TAB PO SCH ×4 (00:30→18:13)
[2022-07-10] MEDS: traMADol HCl 50 MG TAB PO SCH ×4 (00:30→18:13)
[2022-07-10] MEDS: TRIMETHOPRIM IVPB SCH ×2 (00:31→14:23)
[2022-07-10] MEDS: WATER IVPB SCH ×2 (00:31→14:23)
[2022-07-10] MEDS: SULFAMETHOXAZOLE IVPB SCH ×2 (00:31→14:23)
[2022-07-10] MEDS: DEXTROSE 5% IVPB SCH ×2 (00:31→14:23)
[2022-07-10] MEDS: Saccharomyces boulardii 250 MG CAP PO SCH (09:00)
[2022-07-10] MEDS: Ascorbic Acid 500 mg Chewable Tablet PO SCH (09:00)
[2022-07-10] MEDS: Gabapentin 300 MG CAP PO SCH ×3 (09:00→21:34)
[2022-07-10] MEDS: Polyethylene Glycol 3350 17 GM Packet PO SCH (09:01)
[2022-07-10] MEDS: Ferrous Sulfate 325 MG TAB PO SCH (09:01)
[2022-07-10] MEDS: Famotidine 20 MG TAB PO SCH ×2 (09:01→21:34)
[2022-07-10] MEDS: Senokot S 8.6-50 MG TAB PO SCH ×2 (09:01→21:35)
[2022-07-10] MEDS: Ibuprofen 200 MG TAB PO PRN (21:32)
[2022-07-11] MEDS: Acetaminophen 500 MG TAB PO SCH ×5 (00:22→23:47)
[2022-07-11] MEDS: traMADol HCl 50 MG TAB PO SCH ×5 (00:22→23:47)
[2022-07-11] MEDS: DEXTROSE 5% IVPB SCH ×2 (01:12→18:27)
[2022-07-11] MEDS: WATER IVPB SCH ×2 (01:12→18:27)
[2022-07-11] MEDS: TRIMETHOPRIM IVPB SCH ×2 (01:12→18:27)
[2022-07-11] MEDS: SULFAMETHOXAZOLE IVPB SCH ×2 (01:12→18:27)
[2022-07-11 05:56] LABS: #Eosinphils 0.6 thou/uL (0.0-0.7); #Lymphocytes 1.9 thou/uL (1.20-3.40); #Monocytes 0.8 thou/uL (0.11-0.59); #Neutrophils 4.3 thou/uL (1.40-6.50); %Basophils 0.1 % (0.0-1.0); %Lymphocytes 24.7 % (21.0-51.0); %Monocytes 10.3 % (0.0-10.0); %Neutrophils 56.8 % (42.0-75.0); Hemoglobin 8.8 g/dL (14.0-18.0); Mean Corpuscular HGB CONC 33.3 g/dL (32.0-36.0); Mean Corpuscular Hemoglobin 28.7 pg (27.0-31.0); Mean Corpuscular Volume 86.1 fl (78.0-98.0); Mean Platelet Volume 6.6 fL (7.4-10.4); Platelet Count 296 10x3/uL (130-400); RBC Distribution Width 15.4 % (11.5-14.5); Red Blood Cell (RBC) Count 3.05 mill/uL (4.70-6.10); White Blood Cell (WBC) Count 7.5 10x3/uL (4.8-10.8)
[2022-07-11 06:23] LABS: Anion Gap 13 mmol/L (10-20); BUN (Urea Nitrogen) 16 mg/dL (8.9-20.6); Calc. Creatinine Clearance 180 mL/min (70-130); Calcium 9.2 mg/dL (7.8-10.44); Carbon Dioxide 21 mmol/L (22-29); Chloride 105 mmol/L (98-107); Estimated GFR 100; Glucose 81 mg/dL (70-105); Magnesium 1.9 mg/dL (1.6-2.6); Phosphorus 4.7 mg/dL (2.3-4.7); Potassium 4.3 mmol/L (3.5-5.1); Sodium 135 mmol/L (136-145)
[2022-07-11] MEDS: HYDROmorphone 0.5 MG/0.5 ML SYRINGE SLOW IVP PRN (09:42)
[2022-07-11] MEDS: Ferrous Sulfate 325 MG TAB PO SCH (10:43)
[2022-07-11] MEDS: Gabapentin 300 MG CAP PO SCH ×3 (10:43→21:29)
[2022-07-11] MEDS: Ascorbic Acid 500 mg Chewable Tablet PO SCH (10:44)
[2022-07-11] MEDS: Saccharomyces boulardii 250 MG CAP PO SCH (10:44)
[2022-07-11] MEDS: Famotidine 20 MG TAB PO SCH ×2 (10:44→21:30)
[2022-07-11] MEDS: Senokot S 8.6-50 MG TAB PO SCH ×2 (12:27→21:29)
[2022-07-11] MEDS: Polyethylene Glycol 3350 17 GM Packet PO SCH (12:27)
[2022-07-11] MEDS ORDERED: Vancomycin HCl 2.5 GM in Sodium Chloride 0.9% 500 ML IVPB SCH (15:15)
[2022-07-11] MEDS: Clindamycin/D5W 600 MG in Premix Bag 1 BAG IVPB SCH ×2 (15:49→23:52)
[2022-07-11] MEDS: Ibuprofen 200 MG TAB PO PRN (15:57)
[2022-07-11] MEDS ORDERED: Vancomycin 1 GM in Premix Bag 1 BAG IVPB SCH (21:00)
[2022-07-12] MEDS: Ibuprofen 200 MG TAB PO PRN ×2 (02:05→20:10)
[2022-07-12] MEDS: Acetaminophen 500 MG TAB PO SCH ×4 (05:05→23:18)
[2022-07-12] MEDS: traMADol HCl 50 MG TAB PO SCH ×4 (05:05→23:19)
[2022-07-12 06:06] LABS: #Eosinphils 0.6 thou/uL (0.0-0.7); #Lymphocytes 1.6 thou/uL (1.20-3.40); #Monocytes 0.7 thou/uL (0.11-0.59); #Neutrophils 5.3 thou/uL (1.40-6.50); %Basophils 0.2 % (0.0-1.0); %Eosinophils 7.2 % (0.0-10.0); %Lymphocytes 18.9 % (21.0-51.0); %Monocytes 9.1 % (0.0-10.0); %Neutrophils 64.6 % (42.0-75.0); Hemoglobin 8.9 g/dL (14.0-18.0); Mean Corpuscular HGB CONC 33.7 g/dL (32.0-36.0); Mean Corpuscular Hemoglobin 28.7 pg (27.0-31.0); Mean Corpuscular Volume 85.2 fl (78.0-98.0); Mean Platelet Volume 6.2 fL (7.4-10.4); Platelet Count 267 10x3/uL (130-400); RBC Distribution Width 15.7 % (11.5-14.5); Red Blood Cell (RBC) Count 3.09 mill/uL (4.70-6.10); White Blood Cell (WBC) Count 8.2 10x3/uL (4.8-10.8)
[2022-07-12 06:30] LABS: Anion Gap 13 mmol/L (10-20); BUN (Urea Nitrogen) 13 mg/dL (8.9-20.6); CRP (Inflammatory) 1.53 mg/dL (= or < 0.5); Calc. Creatinine Clearance 203 mL/min (70-130); Calcium 9.1 mg/dL (7.8-10.44); Carbon Dioxide 21 mmol/L (22-29); Chloride 105 mmol/L (98-107); Estimated GFR 111; Glucose 105 mg/dL (70-105); Potassium 4.2 mmol/L (3.5-5.1); Sodium 135 mmol/L (136-145)
[2022-07-12] MEDS: Ascorbic Acid 500 mg Chewable Tablet PO SCH (08:07)
[2022-07-12] MEDS: Ferrous Sulfate 325 MG TAB PO SCH (08:08)
[2022-07-12] MEDS: Famotidine 20 MG TAB PO SCH ×2 (08:08→20:11)
[2022-07-12] MEDS: Saccharomyces boulardii 250 MG CAP PO SCH (08:08)
[2022-07-12] MEDS: Senokot S 8.6-50 MG TAB PO SCH ×3 (08:08→20:17)
[2022-07-12] MEDS: Polyethylene Glycol 3350 17 GM Packet PO SCH (08:08)
[2022-07-12] MEDS: Gabapentin 300 MG CAP PO SCH ×3 (08:14→20:11)
[2022-07-12] MEDS: Clindamycin/D5W 600 MG in Premix Bag 1 BAG IVPB SCH ×3 (08:17→23:19)
[2022-07-12] MEDS ORDERED: fentaNYL PF 100 MCG/2 ML SYRINGE ONE ×2 (14:41→14:50)
[2022-07-12] MEDS ORDERED: HYDROmorphone 2 MG/ML VIAL ONE (14:50)
[2022-07-12] MEDS ORDERED: Bacitracin Zinc Ointment 30 gm TUBE ONE (14:53)
[2022-07-12] MEDS ORDERED: Neomycin-Polymyxin 1 ML AMP ONE (14:53)
[2022-07-12] MEDS ORDERED: Thrombin 5000 UNITS/5 ML VIAL ONE (15:03)
[2022-07-12] MEDS ORDERED: Clindamycin/D5W 600 mg/50 ml Premix Bag ONE (15:11)
[2022-07-12] MEDS ORDERED: Lidocaine 1% PF 5 ML VIAL ONE (15:20)
[2022-07-12] MEDS ORDERED: PROPOFOL 200 MG/20 ML VIAL ONE (15:20)
[2022-07-12] MEDS ORDERED: Ondansetron PF 4 MG/2 ML Vial ONE (15:20)
[2022-07-12] MEDS ORDERED: Tobramycin Sulfate 1.2 GM VIAL ONE (15:34)
[2022-07-12] MEDS ORDERED: Vancomycin 1 GM/200 ML (FROZEN) BAG ONE (15:48)
[2022-07-12 18:29] LABS: Vancomycin, Trough 40.7 ug/mL
[2022-07-12] MEDS ORDERED: VANCOMYCIN 2 GRAM/500 ML BAG 2 GM in Premix Bag 1 BAG IVPB SCH (21:00)
[2022-07-12] MEDS ORDERED: Acetaminophen 500 MG TAB PO SCH (23:30)
[2022-07-13] MEDS ORDERED: VANCOMYCIN 2 GRAM/500 ML BAG 2 GM in Premix Bag 1 BAG IVPB SCH (02:00)
[2022-07-13] MEDS: traMADol HCl 50 MG TAB PO SCH ×3 (05:37→17:12)
[2022-07-13] MEDS: Acetaminophen 500 MG TAB PO SCH ×3 (05:38→17:12)
[2022-07-13 07:22] LABS: #Eosinphils 0.3 thou/uL (0.0-0.7); #Monocytes 0.9 thou/uL (0.11-0.59); %Basophils 0.6 % (0.0-1.0); %Eosinophils 5.2 % (0.0-10.0); %Lymphocytes 16.2 % (21.0-51.0); %Monocytes 13.7 % (0.0-10.0); %Neutrophils 64.3 % (42.0-75.0); Hemoglobin 8.8 g/dL (14.0-18.0); Mean Corpuscular HGB CONC 32.8 g/dL (32.0-36.0); Mean Corpuscular Hemoglobin 28.5 pg (27.0-31.0); Mean Corpuscular Volume 86.9 fl (78.0-98.0); Mean Platelet Volume 6.2 fL (7.4-10.4); Platelet Count 265 10x3/uL (130-400); RBC Distribution Width 15.4 % (11.5-14.5); Red Blood Cell (RBC) Count 3.09 mill/uL (4.70-6.10); White Blood Cell (WBC) Count 6.2 10x3/uL (4.8-10.8)
[2022-07-13] MEDS: Ferrous Sulfate 325 MG TAB PO SCH (08:28)
[2022-07-13] MEDS: Clindamycin/D5W 600 MG in Premix Bag 1 BAG IVPB SCH ×2 (08:28→15:06)
[2022-07-13] MEDS: Ascorbic Acid 500 mg Chewable Tablet PO SCH (08:28)
[2022-07-13] MEDS: Famotidine 20 MG TAB PO SCH ×2 (08:28→20:38)
[2022-07-13] MEDS: Gabapentin 300 MG CAP PO SCH ×3 (08:28→20:37)
[2022-07-13] MEDS: Polyethylene Glycol 3350 17 GM Packet PO SCH (08:29)
[2022-07-13] MEDS: Senokot S 8.6-50 MG TAB PO SCH ×2 (08:29→20:38)
[2022-07-13] MEDS: Saccharomyces boulardii 250 MG CAP PO SCH (08:29)
[2022-07-13 18:30] LABS: Vancomycin, Random 2.8 ug/mL (See Comment)
[2022-07-13] MEDS: Ibuprofen 200 MG TAB PO PRN (20:35)
[2022-07-13] MEDS: VANCOMYCIN 1.25 GM/250 ML BAG 1.25 GM in Premix Bag 1 BAG IVPB SCH (20:41)
[2022-07-14] MEDS: traMADol HCl 50 MG TAB PO SCH ×4 (00:30→17:11)
[2022-07-14] MEDS: Clindamycin/D5W 600 MG in Premix Bag 1 BAG IVPB SCH ×3 (00:31→17:11)
[2022-07-14] MEDS: Acetaminophen 500 MG TAB PO SCH ×4 (00:31→17:11)
[2022-07-14] MEDS: VANCOMYCIN 1.25 GM/250 ML BAG 1.25 GM in Premix Bag 1 BAG IVPB SCH ×3 (05:25→22:46)
[2022-07-14] MEDS: Ascorbic Acid 500 mg Chewable Tablet PO SCH (09:27)
[2022-07-14] MEDS: Gabapentin 300 MG CAP PO SCH ×3 (09:27→21:55)
[2022-07-14] MEDS: Polyethylene Glycol 3350 17 GM Packet PO SCH (09:28)
[2022-07-14] MEDS: Famotidine 20 MG TAB PO SCH ×2 (09:28→21:56)
[2022-07-14] MEDS: Saccharomyces boulardii 250 MG CAP PO SCH (09:28)
[2022-07-14] MEDS: Senokot S 8.6-50 MG TAB PO SCH ×2 (09:28→21:56)
[2022-07-14] MEDS: Ferrous Sulfate 325 MG TAB PO SCH (09:28)
[2022-07-14] MEDS: HYDROmorphone 0.5 MG/0.5 ML SYRINGE SLOW IVP PRN (13:09)
[2022-07-14 20:05] LABS: Vancomycin, Trough 18.2 ug/mL
[2022-07-15] MEDS: Acetaminophen 500 MG TAB PO SCH ×4 (00:28→17:26)
[2022-07-15] MEDS: traMADol HCl 50 MG TAB PO SCH ×4 (00:29→17:26)
[2022-07-15] MEDS: Clindamycin/D5W 600 MG in Premix Bag 1 BAG IVPB SCH ×3 (00:29→16:18)
[2022-07-15] MEDS: Ketorolac Tromethamine 30 MG/ML VIAL IVP PRN (02:35)
[2022-07-15] MEDS: VANCOMYCIN 1.25 GM/250 ML BAG 1.25 GM in Premix Bag 1 BAG IVPB SCH ×2 (05:35→12:48)
[2022-07-15] MEDS: Famotidine 20 MG TAB PO SCH ×2 (09:33→21:14)
[2022-07-15] MEDS: Senokot S 8.6-50 MG TAB PO SCH ×2 (09:34→21:16)
[2022-07-15] MEDS: Gabapentin 300 MG CAP PO SCH ×3 (09:34→21:15)
[2022-07-15] MEDS: Saccharomyces boulardii 250 MG CAP PO SCH (09:34)
[2022-07-15] MEDS: Polyethylene Glycol 3350 17 GM Packet PO SCH (09:34)
[2022-07-15] MEDS: Ascorbic Acid 500 mg Chewable Tablet PO SCH (09:34)
[2022-07-15] MEDS: Ferrous Sulfate 325 MG TAB PO SCH (09:34)
[2022-07-15 19:41] LABS: Vancomycin, Trough 20.8 ug/mL
[2022-07-15] MEDS: Vancomycin 1 GM in Premix Bag 1 BAG IVPB SCH (21:15)
[2022-07-16] MEDS: traMADol HCl 50 MG TAB PO SCH ×4 (00:20→18:18)
[2022-07-16] MEDS: Ketorolac Tromethamine 30 MG/ML VIAL IVP PRN ×2 (00:20→13:40)
[2022-07-16] MEDS: Acetaminophen 500 MG TAB PO SCH ×4 (00:21→18:18)
[2022-07-16] MEDS: Clindamycin/D5W 600 MG in Premix Bag 1 BAG IVPB SCH ×3 (00:26→15:23)
[2022-07-16] MEDS: Vancomycin 1 GM in Premix Bag 1 BAG IVPB SCH ×3 (05:57→21:55)
[2022-07-16] MEDS: Ascorbic Acid 500 mg Chewable Tablet PO SCH (09:33)
[2022-07-16] MEDS: Famotidine 20 MG TAB PO SCH ×2 (09:33→21:40)
[2022-07-16] MEDS: Gabapentin 300 MG CAP PO SCH ×3 (09:34→21:55)
[2022-07-16] MEDS: Saccharomyces boulardii 250 MG CAP PO SCH (09:34)
[2022-07-16] MEDS: Ferrous Sulfate 325 MG TAB PO SCH (09:38)
[2022-07-16] MEDS: Polyethylene Glycol 3350 17 GM Packet PO SCH (09:40)
[2022-07-16] MEDS: Senokot S 8.6-50 MG TAB PO SCH (09:40)
[2022-07-16] MEDS: HYDROmorphone 0.5 MG/0.5 ML SYRINGE SLOW IVP PRN (13:50)
[2022-07-16 20:17] LABS: Vancomycin, Trough 16.5 ug/mL
[2022-07-17] MEDS: traMADol HCl 50 MG TAB PO SCH ×5 (00:36→23:30)
[2022-07-17] MEDS: Acetaminophen 500 MG TAB PO SCH ×5 (00:37→23:29)
[2022-07-17] MEDS: Clindamycin/D5W 600 MG in Premix Bag 1 BAG IVPB SCH ×4 (00:37→23:28)
[2022-07-17] MEDS: Vancomycin 1 GM in Premix Bag 1 BAG IVPB SCH ×3 (05:25→21:41)
[2022-07-17] MEDS: Senokot S 8.6-50 MG TAB PO SCH ×3 (05:57→21:20)
[2022-07-17] MEDS: Saccharomyces boulardii 250 MG CAP PO SCH (09:33)
[2022-07-17] MEDS: Gabapentin 300 MG CAP PO SCH ×3 (09:33→21:21)
[2022-07-17] MEDS: Ascorbic Acid 500 mg Chewable Tablet PO SCH (09:34)
[2022-07-17] MEDS: Ferrous Sulfate 325 MG TAB PO SCH (09:35)
[2022-07-17] MEDS: Famotidine 20 MG TAB PO SCH ×2 (09:35→21:20)
[2022-07-17] MEDS: Polyethylene Glycol 3350 17 GM Packet PO SCH (09:35)
[2022-07-17 19:46] LABS: Vancomycin, Trough 15.7 ug/mL
[2022-07-18] MEDS: Ketorolac Tromethamine 30 MG/ML VIAL IVP PRN (00:19)
[2022-07-18] MEDS: Acetaminophen 500 MG TAB PO SCH ×4 (05:08→23:56)
[2022-07-18] MEDS: traMADol HCl 50 MG TAB PO SCH ×4 (05:09→23:57)
[2022-07-18] MEDS: Vancomycin 1 GM in Premix Bag 1 BAG IVPB SCH ×3 (05:37→20:53)
[2022-07-18 05:50] LABS: #Basophils 0.1 thou/uL (0.0-0.2); #Eosinphils 0.6 thou/uL (0.0-0.7); #Lymphocytes 1.5 thou/uL (1.20-3.40); #Monocytes 0.8 thou/uL (0.11-0.59); #Neutrophils 4.5 thou/uL (1.40-6.50); %Basophils 0.8 % (0.0-1.0); %Eosinophils 8.4 % (0.0-10.0); %Lymphocytes 20.3 % (21.0-51.0); %Monocytes 10.2 % (0.0-10.0); %Neutrophils 60.4 % (42.0-75.0); Hemoglobin 8.8 g/dL (14.0-18.0); Mean Corpuscular HGB CONC 32.9 g/dL (32.0-36.0); Mean Corpuscular Hemoglobin 28.4 pg (27.0-31.0); Mean Corpuscular Volume 86.2 fl (78.0-98.0); Mean Platelet Volume 6.5 fL (7.4-10.4); Platelet Count 290 10x3/uL (130-400); RBC Distribution Width 15.3 % (11.5-14.5); Red Blood Cell (RBC) Count 3.12 mill/uL (4.70-6.10); White Blood Cell (WBC) Count 7.4 10x3/uL (4.8-10.8)
[2022-07-18 06:10] LABS: Anion Gap 11 mmol/L (10-20); BUN (Urea Nitrogen) 20 mg/dL (8.9-20.6); CRP (Inflammatory) 1.01 mg/dL (= or < 0.5); Calc. Creatinine Clearance 224 mL/min (70-130); Calcium 9.4 mg/dL (7.8-10.44); Carbon Dioxide 28 mmol/L (22-29); Chloride 103 mmol/L (98-107); Estimated GFR 114; Glucose 88 mg/dL (70-105); Potassium 4.1 mmol/L (3.5-5.1); Sodium 138 mmol/L (136-145)
[2022-07-18] MEDS: Clindamycin/D5W 600 MG in Premix Bag 1 BAG IVPB SCH ×3 (09:41→23:56)
[2022-07-18] MEDS: Gabapentin 300 MG CAP PO SCH ×3 (09:41→20:54)
[2022-07-18] MEDS: Famotidine 20 MG TAB PO SCH ×2 (09:41→20:59)
[2022-07-18] MEDS: Ascorbic Acid 500 mg Chewable Tablet PO SCH (09:58)
[2022-07-18] MEDS: Polyethylene Glycol 3350 17 GM Packet PO SCH (09:58)
[2022-07-18] MEDS: Ferrous Sulfate 325 MG TAB PO SCH (09:58)
[2022-07-18] MEDS: Saccharomyces boulardii 250 MG CAP PO SCH (09:58)
[2022-07-18] MEDS: Senokot S 8.6-50 MG TAB PO SCH ×2 (09:59→21:00)
[2022-07-18] MEDS ORDERED: Bacitracin Zinc Ointment 30 gm TUBE ONE (15:40)
[2022-07-18] MEDS ORDERED: Neomycin-Polymyxin 1 ML AMP ONE (15:40)
[2022-07-18] MEDS ORDERED: Mineral Oil Sterile 10 ML VIAL ONE ×2 (15:40→17:42)
[2022-07-18] MEDS ORDERED: Thrombin 5000 UNITS/5 ML VIAL ONE ×3 (15:40→17:54)
[2022-07-18] MEDS ORDERED: Bupivacaine PF 0.5% 30 ML VIAL ONE (15:40)
[2022-07-18] MEDS ORDERED: fentaNYL PF 100 MCG/2 ML SYRINGE ONE (15:51)
[2022-07-18] MEDS ORDERED: Midazolam HCl 2 mg/2 ml Vial ONE (15:51)
[2022-07-18] MEDS ORDERED: HYDROmorphone 0.5 MG/0.5 ML SYRINGE ONE (15:52)
[2022-07-18] MEDS ORDERED: Promethazine HCl 25 MG/ML VIAL IM PRN (16:10)
[2022-07-18] MEDS ORDERED: Ondansetron HCl/PF 4 MG/2 ML Vial IVP PRN (16:10)
[2022-07-18] MEDS ORDERED: HYDROmorphone 2 MG/ML VIAL SLOW IVP PRN (16:10)
[2022-07-18] MEDS ORDERED: Morphine Sulfate 2 MG/ML SYRINGE SLOW IVP PRN (16:10)
[2022-07-18] MEDS ORDERED: Meperidine HCl/PF 25 MG/ML VIAL SLOW IVP PRN (16:10)
[2022-07-18] MEDS ORDERED: Clindamycin/D5W 600 mg/50 ml Premix Bag ONE (16:30)
[2022-07-18] MEDS ORDERED: PROPOFOL 200 MG/20 ML VIAL ONE (16:38)
[2022-07-18] MEDS ORDERED: Ondansetron PF 4 MG/2 ML Vial ONE (16:38)
[2022-07-18] MEDS ORDERED: Dexamethasone 20 MG/5 ML VIAL ONE (16:38)
[2022-07-18] MEDS ORDERED: Lidocaine 1% PF 5 ML VIAL ONE (16:38)
[2022-07-18] MEDS ORDERED: Fentanyl 100 MCG/2 ML VIAL ONE (19:18)
[2022-07-18] MEDS: Cyclobenzaprine 10 MG TAB PO PRN (20:59)
[2022-07-19] MEDS: Vancomycin 1 GM in Premix Bag 1 BAG IVPB SCH ×3 (04:39→21:10)
[2022-07-19] MEDS: traMADol HCl 50 MG TAB PO SCH ×3 (06:03→17:55)
[2022-07-19] MEDS: Acetaminophen 500 MG TAB PO SCH ×3 (06:03→17:54)
[2022-07-19] MEDS: Clindamycin/D5W 600 MG in Premix Bag 1 BAG IVPB SCH ×2 (08:21→15:33)
[2022-07-19] MEDS: Gabapentin 300 MG CAP PO SCH ×3 (08:22→21:11)
[2022-07-19] MEDS: Ascorbic Acid 500 mg Chewable Tablet PO SCH (08:22)
[2022-07-19] MEDS: Famotidine 20 MG TAB PO SCH ×2 (08:22→21:11)
[2022-07-19] MEDS: Saccharomyces boulardii 250 MG CAP PO SCH (08:22)
[2022-07-19] MEDS: Senokot S 8.6-50 MG TAB PO SCH ×2 (08:22→21:11)
[2022-07-19] MEDS: Ferrous Sulfate 325 MG TAB PO SCH (08:22)
[2022-07-19] MEDS: Polyethylene Glycol 3350 17 GM Packet PO SCH (08:23)
[2022-07-20] MEDS: traMADol HCl 50 MG TAB PO SCH ×3 (00:01→11:09)
[2022-07-20] MEDS: Clindamycin/D5W 600 MG in Premix Bag 1 BAG IVPB SCH ×3 (00:01→15:37)
[2022-07-20] MEDS: Acetaminophen 500 MG TAB PO SCH ×3 (00:37→11:09)
[2022-07-20] MEDS ORDERED: Ibuprofen 200 MG TAB PO PRN (01:59)
[2022-07-20] MEDS: Vancomycin 1 GM in Premix Bag 1 BAG IVPB SCH ×2 (04:14→11:08)
[2022-07-20] MEDS: Gabapentin 300 MG CAP PO SCH ×2 (08:03→15:33)
[2022-07-20] MEDS: Saccharomyces boulardii 250 MG CAP PO SCH (08:03)
[2022-07-20] MEDS: Famotidine 20 MG TAB PO SCH (08:03)
[2022-07-20] MEDS: Ascorbic Acid 500 mg Chewable Tablet PO SCH (08:03)
[2022-07-20] MEDS: Ferrous Sulfate 325 MG TAB PO SCH (08:03)
[2022-07-20] MEDS: Senokot S 8.6-50 MG TAB PO SCH (08:10)
[2022-07-20] MEDS: Polyethylene Glycol 3350 17 GM Packet PO SCH (08:10)
[2022-07-20 13:00] VITALS: TEMP 97.7
[2022-07-20 15:55] VITALS: BP 130/79
== END 2022-07-20 15:55 | disposition home or self-care (01) | DRG 463 ==
LOC: ERS 05:16 → IMCU/EMU 06:02 → CCU 23:19 → IMCU/EMU 06-03 06:33 → SURG B 06-03 14:34
PROVIDERS: ADMIT Orthopaedic Surgery Hand Surgery; ATTEND Surgery
PROC: 0QSK04Z Reposition Left Fibula with Internal Fixation Device, Open Approach (ICD-10-PCS; principal; 2022-06-01)
PROC: 0KQ00ZZ Repair Head Muscle, Open Approach (ICD-10-PCS; 2022-06-01)
PROC: 0SH Lower Joints, Insertion (ICD-10-PCS; 2022-06-01)
PROC: 0LQP0ZZ Repair Left Lower Leg Tendon, Open Approach (ICD-10-PCS; 2022-06-01)
PROC: 5A1935Z Respiratory Ventilation, Less than 24 Consecutive Hours (ICD-10-PCS; 2022-06-01)
PROC: 30233K1 Transfusion of Nonautologous Frozen Plasma into Peripheral Vein, Percutaneous Approach (ICD-10-PCS; 2022-06-01)
PROC: 08QNXZZ Repair Right Upper Eyelid, External Approach (ICD-10-PCS; 2022-06-01)
PROC: 30233N1 Transfusion of Nonautologous Red Blood Cells into Peripheral Vein, Percutaneous Approach (ICD-10-PCS; 2022-06-01)
PROC: 0HQ4XZZ Repair Neck Skin, External Approach (ICD-10-PCS; 2022-06-01)
PROC: 02HV33Z Insertion of Infusion Device into Superior Vena Cava, Percutaneous Approach (ICD-10-PCS; 2022-07-12)
PROC: B5181ZA Fluoroscopy of Superior Vena Cava using Low Osmolar Contrast, Guidance (ICD-10-PCS; 2022-07-12)
PROC: B548ZZA Ultrasonography of Superior Vena Cava, Guidance (ICD-10-PCS; 2022-07-12)
PROC: 0JBR0ZZ Excision of Left Foot Subcutaneous Tissue and Fascia, Open Approach (ICD-10-PCS; 2022-07-14)
PROC: 0HRNX74 Replacement of Left Foot Skin with Autologous Tissue Substitute, Partial Thickness, External Approach (ICD-10-PCS; 2022-07-18)
PROC: 0JBR0ZZ Excision of Left Foot Subcutaneous Tissue and Fascia, Open Approach (ICD-10-PCS; 2022-07-18)
PROC: 0HRNXK3 Replacement of Left Foot Skin with Nonautologous Tissue Substitute, Full Thickness, External Approach (ICD-10-PCS; 2022-07-18)
PROC: 3E0U029 Introduction of Other Anti-infective into Joints, Open Approach (ICD-10-PCS; 2022-07-18)
DX: S82.452B Displaced comminuted fracture of shaft of left fibula, initial encounter for open fracture type I or II (principal); Z20.822 Contact with and (suspected) exposure to COVID-19; Z23 Encounter for immunization; J96.00 Acute respiratory failure, unspecified whether with hypoxia or hypercapnia; D62 Acute posthemorrhagic anemia; S82.52 Displaced fracture of medial malleolus of left tibia; I96 Gangrene, not elsewhere classified; S01.01XA Laceration without foreign body of scalp, initial encounter; S11.91XA Laceration without foreign body of unspecified part of neck, initial encounter; S01.111A Laceration without foreign body of right eyelid and periocular area, initial encounter; S42.012A Anterior displaced fracture of sternal end of left clavicle, initial encounter for closed fracture; S42.192A Fracture of other part of scapula, left shoulder, initial encounter for closed fracture; H05.232 Hemorrhage of left orbit; S86.012A Strain of left Achilles tendon, initial encounter; E83.42 Hypomagnesemia; E83.39 Other disorders of phosphorus metabolism; E87.6 Hypokalemia; B95.2 Enterococcus as the cause of diseases classified elsewhere; L08.89 Other specified local infections of the skin and subcutaneous tissue; B95.62 Methicillin resistant Staphylococcus aureus infection as the cause of diseases classified elsewhere; B95.1 Streptococcus, group B, as the cause of diseases classified elsewhere; Z78.1 Physical restraint status; V44.5XXA Car driver injured in collision with heavy transport vehicle or bus in traffic accident, initial encounter; Y92.410 Unspecified street and highway as the place of occurrence of the external cause
CPT/HCPCS: 27810; 36415; 36430; 36569; 36600; 51702; 70450; 71045; 71260; 72125; 72170; 74177; 75635; 80048; 80053; 80076; 80202; 80306; 80307; 81001; 81003; 81015; 82533; 82550; 82805; 83605; 83690; 83735; 83880; 84100; 84484; 85014; 85018; 85025; 85049; 85520; 85610; 85652; 85730; 86140; 86850; 86900; 86901; 87040; 87070; 87076; 87077; 87086; 87186; 87205; 87811; 88307; 88311; 90471; 90715; 93005; 93010; 93970; 94002; 94003; 94640; 96374; 96375; 96376; 97139; C1713; C9363-KX-JC; G0390; J0696; J1100; J1170; J1650; J1720; J1885; J1940; J1956; J2250; J2270; J2310; J2405; J2543; J2704; J3010; J3260; J3370; J3370-JW; J3475; J3490; J7030; J7050; J7070; J7620; J7643; P9016; P9045; P9048; Q9967; S0020; S0028; U0002